=== PATIENT | female | born 1935 | race Caucasian/White ===

== ENCOUNTER 2018-01-26 11:16 | Outpatient (CLI) | payer MEDICARE | END 2018-01-26 11:17 | disposition home or self-care (01) | LOC: BICMAMMO 11:16 | PROVIDERS: ATTEND Internal Medicine | DX: Z12.31 Encounter for screening mammogram for malignant neoplasm of breast (principal); R92.1 Mammographic calcification found on diagnostic imaging of breast | CPT/HCPCS: 77063; 77067 ==

== ENCOUNTER 2019-03-14 11:10 | Outpatient (CLI) | payer MEDICARE ==
--- NOTE | 2019-03-14 12:41 | MMO ---
Bilateral MAMMO Bilat Screen [facility]. CLINICAL HISTORY: Patient is 84 years old and is seen for screening. The patient has no family history of breast cancer. The patient has no personal history of cancer. VIEWS: The views performed were: bilateral craniocaudal with tomosynthesis; bilateral mediolateral oblique; and bilateral mediolateral oblique with tomosynthesis. FILMS COMPARED: The present examination has been compared to prior imaging studies performed at [facility] on 10/02/2014, 11/05/2015, 01/06/2017 and 01/26/2018. MAMMOGRAM FINDINGS: There are scattered fibroglandular densities. Finding 1: There are stable benign appearing calcifications seen in both breasts. Finding 2: There are stable benign appearing densities seen in both breasts. There are no suspicious masses, suspicious calcifications, or new areas of architectural distortion. IMPRESSION: THERE IS NO MAMMOGRAPHIC EVIDENCE OF MALIGNANCY. A ROUTINE FOLLOW-UP MAMMOGRAM IN 1 YEAR IS RECOMMENDED. THE RESULTS OF THIS EXAM WERE SENT TO THE PATIENT. ACR BI-RADS Category 2 - Benign finding MAMMOGRAPHY NOTE: 1. A negative mammogram report should not delay a biopsy if a dominant of clinically suspicious mass is present. 2. Approximately 10% to 15% of breast cancers are not detected by mammography. 3. Adenosis and dense breasts may obscure an underlying neoplasm.
== END 2019-03-14 11:11 | disposition home or self-care (01) ==
LOC: BICMAMMO 11:10
PROVIDERS: ATTEND Internal Medicine
DX: Z12.31 Encounter for screening mammogram for malignant neoplasm of breast (principal)
CPT/HCPCS: 77063; 77067

== ENCOUNTER 2020-03-31 18:13 | Inpatient (IN) | payer MEDICARE ==
[2020-03-31] MEDS ORDERED: Senokot S 8.6-50 MG TAB PO PRN (19:58)
[2020-03-31] MEDS ORDERED: Ondansetron ODT 4 MG TAB PO PRN (19:58)
[2020-03-31] MEDS ORDERED: Ondansetron PF 4 MG/2 ML Vial IVP PRN (19:58)
[2020-03-31] MEDS ORDERED: Dextrose 5% in Water 1,000 ML IV PRN (20:35)
[2020-03-31] MEDS ORDERED: Dextrose 50% Abboject 50 ML SYRINGE SLOW IVP PRN (20:35)
[2020-03-31 21:10] LABS: Anion Gap 11 mmol/L (10-20); BUN (Urea Nitrogen) 6 mg/dL (9.8-20.1); Calc. Creatinine Clearance 0 mL/min (70-130); Calcium 7.7 mg/dL (7.8-10.44); Carbon Dioxide 27 mmol/L (23-31); Chloride 81 mmol/L (98-107); Estimated GFR-MDRD 89; Glucose 173 mg/dL (83-110); Potassium 4.3 mmol/L (3.5-5.1)
--- NOTE | 2020-03-31 21:20 | PDOC.FPRHP ---
- History of Present Illness Chief Complaint: SOB, Edema History of Present Illness: Pt is an 85 yo female with PMH of Afib on anticoagulation, DMII, HTN, and IBS who was transferred from [place] for complaints of SOB and edema. Reports 3 -4 days of bilateral lower extremity edema and SOB that has failed to improved. Reports that this has been accompanied by cough, lightheadedness and similar episodes of "fluid on lungs" in the past. Denies orthopnea, WILLIAM/N/V, fever, chills, seizure, syncope. ED Course: Received EKG and labs at outside hospital Lasix 40 IV given at outside hospital - Allergies/Adverse Reactions Allergies Allergy/AdvReac Type Severity Reaction Status Date / Time codeine Allergy Unverified 03/31/20 20:39 - History PMHx: Afib, DM, HTN, IBS PSHx: Hysterectomy, hernia repair FHx: noncontributory Social: lives alone in [place]. Denies tobacco and alcohol use - Review of Systems General: denies: fever/chills Eyes: denies: vision changes Respiratory: reports: cough, shortness of breath Cardiovascular: reports: edema. denies: chest pain, orthopnea Gastrointestinal: reports: diarrhea. denies: nausea, vomiting Genitourinary: denies: dysuria Skin: denies: rashes Musculoskeletal: reports: tenderness Neurological: denies: syncope, seizure Psychological: denies: anxiety, depression - Vital signs BP: [184/84] HR: [66] RR: [22] Tmax: [97.9] Pox: [96]% on [RA] Wt: [86kg] - Physical Exam Constitutional: awake, alert and oriented HEENT: normocephalic and atraumatic, PERRLA, EOMI, grossly normal hearing, MMM Neck: supple -Heart: irregular rate and rhythm, afib; nonpitting edema of the bilateral lower extremities Lungs: CTAB -Lungs: poor inspiratory effort Abdomen: soft, non-tender, bowel sounds present Neurological: no focal deficit Skin: no rash/lesions FMR H&P: Results - Labs Result Diagrams: 04/01/20 06:13 04/01/20 06:13 - EKG Interpretation EKG: Afib with rate ~49; rate in 60s upon exam FMR H&P: A/P - Plan 85 yo female with PMH of Afib, DMII, HTN, and IBS who is admitted to tele for pulmonary edema and hyponatremia. Pulmonary Edema -likely secondary to CHF with BNP of 1006 -contact Dr. Casarez tomorrow -Xray at outside hospital showed cardiomegaly and signs of pulmonary edema -40 mg of IV lasix given at outside hospital, 20 mg of IV lasix -continue to monitor fluid status Hyponatremia -likely Hypervolemic hyponatremia -given lasix as mentioned above -will hold home medication of Dyazide Afib -admitting to tele -continue home Cartia and warfarin -INR 2.0 DMII -continue home Janumet -hypoglycemic protocols in place HTN -continue home lisinopril IBS -continue home dicyclomine Diet: HH/CC IVF: none PPx: SCDs, pt is also on warfarin for Afib Code: DNR/DNI PCP: [facility] Attending: Pieter Dispo: will admit to tele; expected length of stay >48 hrs. FMR H&P: Upper Level - Plan 85 yo F with PMH afib on anticoagulation, HLD, DM, HTN presents for increasing SOB and LE edema. She felt like it was time to get evaluated and for some oxygen. Denies orthopnea, fever, chills, cough. Hyponatremia found in ED. Patient was recently started on new diuretic, thiazide by Dr. Damon. Per chart has been on Lasix in past but patient did not like it as it made her pee frequently. PE Gen: NAD, alert and oriented Heart: irregularly irregular Lungs: no wheezing or rhonchi, decreased breath sounds at the bases Ext: nonpitting edema of BLE with chronic venous stasis changes Hyponatremia -Initial Na+ 115 @ 14:00 on 03/30. (Na of 122 on 03/28). -In setting of hypervolemia. Likely thiazide induce hypotonic hyponatremia. Patient asymptomatic. Not acutely elevated, goal to increase by 8 in next 24 hrs. BMP q4h. -s/p IV Lasix in ED. Will recheck BMP as hours have passed and reassess for improvement -discontinue thiazide, strict I/Os, fluid restrict 1800, may need more diuresis - serum osm, urine studies ordered as well Possible CHF exacerbation -CXR with cardiomegaly and increased interstitial markings, LE edema -Was on 2L NC in ED but now satting well on RA -Given nitro paste and Lasix IV 40 in ED -BNP of 1006 (was 636 on 03/28). Pt denies hx of CHF, [facility] -Will request records from Dr. Damon office in am Afib -Continue home warfarin, rate controlled on cartia See social media intern note for other chronic medical problems. Dispo: admit to telemetry inpatient, monitor sodium correction closely Addendum - Attending - Attending Attestation Date/Time: 04/01/20 0709 I personally evaluated the patient and discussed the management with Dr. Underwood on 03/31/20 I agree with the History, Examination, Assessment and Plan documented above with any addition or exceptions noted below - 85 yo F with PMH afib on warfarin , HLD, DM, HTN presents for increasing SOB and LE edema. Has had similar prior episodes of "fluid on her lungs". Denies orthopnea, fever, chills, cough. Hyponatremia found in ED. Patient was recently started on new diuretic, thiazide by Dr. Damon. Per chart has been on Lasix in past but patient did not like it as it made her pee frequently. PMH/PSH/Meds/SH reviewed and agree with resident's documentation. Afebrile VSS Exam repeated by me and agree with resident's findings. Labs: Uy=718, K=4.3, Cl=81, CO2=27, BUN/Cr=6/0.64, Upst=134 , WBC=13.7, H/H=12.6/36, trop=0.023, AOL=8947, CXR- cardiomegaly A/P: 1) Volume overload- per patient no known diagnosis of CHF. Will contact supervisor blast furnace's office regarding any recent echo to confirm EF. Given 40 mg lasix in outlyin ER with improvement in patient's symptoms. Additional 20 mg given here. Monitor I/ Os. 2) Hypovolemic hyponatremia - asymptomatic; has been slowly decreasing over last several days. Will fluid restrict; check urine urea and osmo. 3) DM- continue home meds; monitro accuchecks. .
[2020-03-31 21:21] LABS: Sodium 115 mmol/L (136-145)
[2020-03-31] MEDS ORDERED: Furosemide 20 MG/2 ML VIAL SLOW IVP SCH (21:30)
[2020-03-31] MEDS ORDERED: Furosemide 40 MG/4 ML VIAL ONE (22:12)
[2020-03-31] MEDS ORDERED: metFORMIN 500 MG TAB PO SCH (23:00)
[2020-03-31] MEDS ORDERED: Alogliptin 6.25 MG TAB PO SCH (23:00)
[2020-03-31] MEDS ORDERED: Warfarin Sodium 2 MG TAB PO SCH (23:00)
[2020-04-01 01:12] LABS: Anion Gap 13 mmol/L (10-20); BUN (Urea Nitrogen) 6 mg/dL (9.8-20.1); Calc. Creatinine Clearance 0 mL/min (70-130); Calcium 7.6 mg/dL (7.8-10.44); Carbon Dioxide 28 mmol/L (23-31); Chloride 78 mmol/L (98-107); Estimated GFR-MDRD 89; Glucose 179 mg/dL (83-110); Potassium 3.9 mmol/L (3.5-5.1)
[2020-04-01 01:16] LABS: Sodium 115 mmol/L (136-145)
[2020-04-01] MEDS ORDERED: Acetaminophen 325 MG TAB ONE ×2 (02:56→11:28)
[2020-04-01] MEDS: Acetaminophen 325 MG TAB PO PRN ×2 (03:03→11:40)
[2020-04-01] MEDS ORDERED: Albuterol Sulfate 2.5 mg/3 ml Neb NEB PRN (03:11)
--- NOTE | 2020-04-01 05:58 | PDOC.FM ---
- Subjective Subjective: Ms. Castano is still in ED awaiting room placement. She is alert and oriented to person and time but not entirely to place. She knew she was at the hospital but did not know which one. She complains of feeling hot and appears to be breathing heavy although she denies any SOB at this time. - Objective Vital Signs & Weight: BP 133/71, P 65, R 17, T 97.8, 100% on 2L Result Diagrams: 04/01/20 06:13 04/01/20 14:07 Phys Exam - Physical Examination difficult to assess due to patient's inability to sit up or roll over Cardiovascular: no significant murmur irregular rhythm consistent with Afib Gastrointestinal: soft, non-tender Musculoskeletal: edema present Neurological: moves all 4 limbs Deviation from normal: A&O x2 Dx/Plan - Plan Plan: 85 yo female with PMH of Afib, DMII, HTN, and IBS who is admitted to tele for pulmonary edema and hyponatremia. Pulmonary Edema -likely secondary to CHF with BNP of 1006 -contact Dr. Damon for records -Xray at outside hospital showed cardiomegaly and signs of pulmonary edema -40 mg of IV lasix given at outside hospital, 20 mg of IV lasix -continue to monitor fluid status Hyponatremia -Na 115->115->115 -gave 80mg IV lasix -reasses at 0900 and q4h after that -Urine sodium and osmolality pending -Mg, Phos, TSH pending -likely Hypervolemic hyponatremia -will hold home medication of Dyazide Leukocytosis -WBC 13.7 this AM, unaware of value at outside hospital before admission -Procal pending Afib -admitting to tele -continue home Cartia and warfarin -INR 2.0 DMII -continue home Janumet -hypoglycemic protocols in place HTN -continue home lisinopril IBS -continue home dicyclomine Diet: HH/CC IVF: none PPx: SCDs, pt is also on warfarin for Afib Code: DNR/DNI PCP: [facility] Attending: Pieter Dispo: will admit to tele; expected length of stay >48 hrs. Addendum - Attending - Attending Attestation Date/Time: 04/01/20 8870 I personally evaluated the patient and discussed the management with Dr. Bedoya. I agree with the History, Examination, Assessment and Plan documented above with any addition or exceptions noted below. her hyponatremia remains unchanged this morning. She appears to be clinically overloaded but has not responded to diuretic therapy yet. She is mentating well. Will increase fluid restriction to 1200 mL/day and give additional dose of IV lasix 80 mg. if this does not change sodium at next check will repeat lasix with metolazone. She was started on a thiazide diuretic recently so it is possible that this is mediating her hypoNa as well. If no improvement after lasix and metolazone, will consider adding NS to regimen in case this is diuretic mediated and she is systemically Na depleted. Hypertonic Na if she becomes symptomatic. Replace electrolytes as needed.
[2020-04-01 06:21] LABS: #Eosinphils 0.1 thou/uL (0.0-0.7); #Monocytes 1.3 thou/uL (0.11-0.59); #Neutrophils 10.3 thou/uL (1.40-6.50); %Basophils 0.2 % (0.0-1.0); %Eosinophils 0.8 % (0.0-10.0); %Lymphocytes 14.5 % (21.0-51.0); %Monocytes 9.6 % (0.0-10.0); Hemoglobin 12.6 g/dL (12.0-16.0); Mean Corpuscular Hemoglobin 33.3 pg (27.0-31.0); Platelet Count 201 thou/uL (130-400); RBC Distribution Width 12.1 % (11.5-14.5); Red Blood Cell (RBC) Count 3.79 mill/uL (4.20-5.40); White Blood Cell (WBC) Count 13.7 thou/uL (4.8-10.8)
[2020-04-01 06:43] LABS: Anion Gap 11 mmol/L (10-20); BUN (Urea Nitrogen) 6 mg/dL (9.8-20.1); Calc. Creatinine Clearance 0 mL/min (70-130); Calcium 7.5 mg/dL (7.8-10.44); Carbon Dioxide 31 mmol/L (23-31); Chloride 77 mmol/L (98-107); Estimated GFR-MDRD Greater than 90; Glucose 133 mg/dL (83-110); Potassium 3.9 mmol/L (3.5-5.1)
[2020-04-01 06:46] LABS: Sodium 115 mmol/L (136-145)
[2020-04-01] MEDS ORDERED: Furosemide 100 MG/10 ML VIAL SLOW IVP SCH (07:45)
[2020-04-01] MEDS ORDERED: Furosemide 40 MG TAB ONE (09:14)
[2020-04-01] MEDS ORDERED: Furosemide 40 MG/4 ML VIAL ONE (09:26)
[2020-04-01 09:45] LABS: Anion Gap 11 mmol/L (10-20); BUN (Urea Nitrogen) 6 mg/dL (9.8-20.1); Calc. Creatinine Clearance 0 mL/min (70-130); Calcium 7.6 mg/dL (7.8-10.44); Carbon Dioxide 30 mmol/L (23-31); Chloride 77 mmol/L (98-107); Estimated GFR-MDRD Greater than 90; Glucose 144 mg/dL (83-110); Potassium 3.9 mmol/L (3.5-5.1)
[2020-04-01 09:53] LABS: Sodium 114 mmol/L (136-145)
[2020-04-01 10:07] LABS: Magnesium 1.4 mg/dL (1.6-2.6); Phosphorus 2.9 mg/dL (2.3-4.7)
[2020-04-01] MEDS: metFORMIN 500 MG TAB PO SCH ×2 (10:35→21:28)
[2020-04-01] MEDS: Alogliptin 6.25 MG TAB PO SCH ×2 (10:35→21:27)
[2020-04-01] MEDS: Timolol 0.5% Ophth Soln 5 ml Bottle EA EYE SCH ×2 (10:35→22:24)
[2020-04-01] MEDS ORDERED: Magnesium 2 GM/50 ML 2 GM in Premix Bag 1 BAG IVPB SCH (12:00)
[2020-04-01 14:51] LABS: Anion Gap 11 mmol/L (10-20); BUN (Urea Nitrogen) 6 mg/dL (9.8-20.1); Calc. Creatinine Clearance 101 mL/min (70-130); Calcium 7.4 mg/dL (7.8-10.44); Carbon Dioxide 31 mmol/L (23-31); Chloride 76 mmol/L (98-107); Estimated GFR-MDRD Greater than 90; Glucose 138 mg/dL (83-110); Potassium 3.7 mmol/L (3.5-5.1)
[2020-04-01 14:57] LABS: Sodium 114 mmol/L (136-145)
[2020-04-01] MEDS ORDERED: Metolazone 5 MG TAB PO SCH (15:15)
[2020-04-01] MEDS ORDERED: Warfarin Sodium 2 MG TAB PO SCH (17:00)
[2020-04-01] MEDS ORDERED: Dextrose 50% Abboject 50 ML SYRINGE SLOW IVP PRN (18:11)
[2020-04-01] MEDS ORDERED: Dextrose 5% in Water 1,000 ML IV PRN (18:11)
[2020-04-01] MEDS: Insulin Regular 300 UNITS/3 ML VIAL SC PRN (18:42)
[2020-04-01 18:56] LABS: Anion Gap 13 mmol/L (10-20); BUN (Urea Nitrogen) 8 mg/dL (9.8-20.1); Calc. Creatinine Clearance 85 mL/min (70-130); Calcium 7.6 mg/dL (7.8-10.44); Carbon Dioxide 30 mmol/L (23-31); Estimated GFR-MDRD 76; Glucose 202 mg/dL (83-110); Potassium 4.2 mmol/L (3.5-5.1)
[2020-04-01 19:00] LABS: Chloride 74 mmol/L (98-107); Sodium 113 mmol/L (136-145)
[2020-04-01] MEDS: Sodium Chloride 0.9% 1,000 ML IV SCH (19:36)
[2020-04-01 20:58] LABS: Phosphorus 3.4 mg/dL (2.3-4.7)
[2020-04-01] MEDS ORDERED: Lisinopril 20 MG TAB PO SCH (21:00)
[2020-04-01] MEDS ORDERED: Magnesium 2 GM/50 ML 1 GM in Premix Bag 1 BAG IVPB SCH (21:15)
[2020-04-01] MEDS: Latanoprost 0.005% Ophth Soln 2.5 ml Bottle EA EYE SCH (21:26)
[2020-04-01] MEDS: Atorvastatin Calcium 10 MG TAB PO SCH (21:28)
[2020-04-01 21:39] LABS: Anion Gap 14 mmol/L (10-20); BUN (Urea Nitrogen) 8 mg/dL (9.8-20.1); Calc. Creatinine Clearance 87 mL/min (70-130); Calcium 7.5 mg/dL (7.8-10.44); Carbon Dioxide 28 mmol/L (23-31); Chloride 76 mmol/L (98-107); Estimated GFR-MDRD 79; Glucose 169 mg/dL (83-110); Potassium 4.1 mmol/L (3.5-5.1)
[2020-04-01 21:44] LABS: Sodium 114 mmol/L (136-145)
[2020-04-01] MEDS: DOBUTamine 500 mg/250 ml 250 ML IVPB SCH (21:57)
[2020-04-02 04:22] LABS: #Eosinphils 0.1 thou/uL (0.0-0.7); #Lymphocytes 1.4 thou/uL (1.20-3.40); #Monocytes 0.9 thou/uL (0.11-0.59); #Neutrophils 9.8 thou/uL (1.40-6.50); %Eosinophils 0.6 % (0.0-10.0); %Lymphocytes 11.6 % (21.0-51.0); %Monocytes 7.2 % (0.0-10.0); %Neutrophils 80.6 % (42.0-75.0); Hemoglobin 11.6 g/dL (12.0-16.0); Mean Corpuscular HGB CONC 34.4 g/dL (32.0-36.0); Mean Corpuscular Hemoglobin 32.9 pg (27.0-31.0); Mean Corpuscular Volume 95.6 fL (78.0-98.0); Mean Platelet Volume 7.4 fL (7.4-10.4); Platelet Count 185 thou/uL (130-400); RBC Distribution Width 12.2 % (11.5-14.5); Red Blood Cell (RBC) Count 3.51 mill/uL (4.20-5.40); White Blood Cell (WBC) Count 12.2 thou/uL (4.8-10.8)
[2020-04-02 04:37] LABS: Prothrombin Time 22.2 sec (12.0-14.7)
[2020-04-02 04:48] LABS: Anion Gap 13 mmol/L (10-20); BUN (Urea Nitrogen) 10 mg/dL (9.8-20.1); Calc. Creatinine Clearance 78 mL/min (70-130); Calcium 6.8 mg/dL (7.8-10.44); Carbon Dioxide 26 mmol/L (23-31); Estimated GFR-MDRD 70; Glucose 345 mg/dL (83-110); Potassium 3.8 mmol/L (3.5-5.1)
[2020-04-02 04:52] LABS: Chloride 74 mmol/L (98-107); Sodium 109 mmol/L (136-145)
[2020-04-02] MEDS ORDERED: Sodium Chloride 3% 500 ML IVPB SCH (05:15)
[2020-04-02] MEDS ORDERED: Furosemide 40 MG/4 ML VIAL SLOW IVP SCH (05:30)
[2020-04-02] MEDS ORDERED: Sodium Chloride 3% 50 ML IVPB SCH (05:45)
[2020-04-02] MEDS: Sodium Chloride 0.9% 1,000 ML IV SCH ×3 (05:48→21:17)
--- NOTE | 2020-04-02 06:20 | PDOC.FM ---
- Subjective Subjective: Patient says she feels weak and tired today. She denies any headache or nausea and says her SOB has improved. She is not hungry this morning but was attempting to eat breakfast. - Objective Vital Signs & Weight: Vital Signs (12 hours) Temp Pulse Resp BP Pulse Ox 04/02/20 04:00 97.5 F L 55 L 16 116/59 L 98 04/02/20 00:00 98.1 F 33 L 18 104/55 L 98 04/01/20 22:24 38 L 04/01/20 20:00 98 04/01/20 19:33 85/52 L 04/01/20 19:22 98.4 F 38 L 20 112/56 L 100 Weight Weight 91.762 kg I&O: 03/31/20 04/01/20 04/02/20 06:59 06:59 06:59 Intake Total 500 Balance 500 Result Diagrams: 04/02/20 03:41 04/02/20 14:39 Additional Labs: Laboratory Tests 04/02/20 04/02/20 03:41 03:41 PT 22.2 H INR 2.0 Sodium 109 L* Phys Exam - Physical Examination Constitutional: NAD HEENT: PERRLA, moist MMs, sclera anicteric Neck: full ROM course breath sounds throughout Cardiovascular: RRR, no significant murmur, no rub Gastrointestinal: soft, non-tender, no distention, positive bowel sounds Musculoskeletal: pulses present 1+ LE edema bilaterally Neurological: non-focal, moves all 4 limbs Psychiatric: normal affect, A&O x 3 Dx/Plan - Plan Plan: 85 yo female with PMH of Afib, DMII, HTN, and IBS who is admitted to [facility] for pulmonary edema and hyponatremia. Pulmonary Edema -likely secondary to CHF with BNP of 1006 -Dr. Damon has no record of ECHO -ECHO ordered -Xray at outside hospital showed cardiomegaly and signs of pulmonary edema -40 mg of IV lasix given at outside hospital, 20 mg of IV lasix -continue to monitor fluid status Hyponatremia -Na 115->115->115->114->114->109 (113 corrected)-->115-->115 -I spoke with Dr. Puckett who recommended 1L fluid restriction. Says to not give anymore hypertonic saline, he will give an ADH antagonist. -likely Hypervolemic hyponatremia -Given persistent hyponatremia despite diuretic therapy, patient was given 50mL hypertonic saline @50mL/hr @ 0545 on 04/02 as well as additional 40mg IV lasix. -BMP q2hrs -Received NS @ 100mL/hr @ 1915 on 04/01 -140mg IV lasix total given since admission -TSH, Phos normal -Hold home medication of Dyazide Hypotension -BPs 85/52, 104/55 -HR 52,38,38,33,55 -Dobutamine drip @ 13.7mL/hr @ 2157 on 04/01 Hypocalcemia 69>76>74>77 -will replace Leukocytosis -WBC 13.7->10.7 -Procal 0.03 -unlikely infectious in nature Afib -admitting to tele -continue home Cartia and warfarin -INR 2.0 Hypomagnesium -1.4, repleted DMII -mod SSI -continue home Janumet -hypoglycemic protocols in place HTN -continue home lisinopril IBS -continue home dicyclomine Diet: HH/CC IVF: none PPx: SCDs, pt is also on warfarin for Afib Code: DNR/DNI PCP: [facility] Attending: Pieter Dispo: will admit to tele; expected length of stay >48 hrs. Addendum - Attending - Attending Attestation Date/Time: 04/02/20 2051 I personally evaluated the patient and discussed the management with Dr. Bedoya. I agree with the History, Examination, Assessment and Plan documented above with any addition or exceptions noted below. She required initiation of a dobutamine GTT last night due to bradycardia and remains severely hyponatremic. Cardiology and nephrology consulted today. Awaiting further recommendations.
[2020-04-02 06:29] LABS: Anion Gap 11 mmol/L (10-20); BUN (Urea Nitrogen) 11 mg/dL (9.8-20.1); Calc. Creatinine Clearance 74 mL/min (70-130); Calcium 7.2 mg/dL (7.8-10.44); Carbon Dioxide 31 mmol/L (23-31); Chloride 77 mmol/L (98-107); Estimated GFR-MDRD 66; Glucose 194 mg/dL (83-110)
[2020-04-02 06:35] LABS: Sodium 115 mmol/L (136-145)
[2020-04-02 08:17] LABS: Anion Gap 13 mmol/L (10-20); BUN (Urea Nitrogen) 12 mg/dL (9.8-20.1); Calc. Creatinine Clearance 79 mL/min (70-130); Calcium 7.1 mg/dL (7.8-10.44); Carbon Dioxide 26 mmol/L (23-31); Chloride 80 mmol/L (98-107); Estimated GFR-MDRD 71; Glucose 129 mg/dL (83-110); Potassium 4.3 mmol/L (3.5-5.1)
[2020-04-02 08:22] LABS: Sodium 115 mmol/L (136-145)
[2020-04-02] MEDS ORDERED: Tolvaptan 15 MG TAB PO SCH (09:30)
--- NOTE | 2020-04-02 09:54 | CON ---
DATE OF CONSULTATION: SERVICE: Renal Medicine. HISTORY OF PRESENT ILLNESS: Ms. Castano is an 85-year-old white female, who was admitted initially for shortness of breath secondary to CHF. She was noted to be hyponatremic. Hyponatremia remained persistent in spite of optimization of her hemodynamics. She has been given free water restriction as well as diuretics. Due to the improved serum sodium, an empiric normal saline was given without improvement. In addition, she was said to have received limited quantity of hypertonic saline. We are now being consulted for this acute ? hyponatremia. Please note that I did see that the patient was taking hydrochlorothiazide as part of outpatient management. She was on triamterene/hydrochlorothiazide. REVIEW OF SYSTEMS: Currently, no chest pain. Mild shortness of breath. No nausea. No vomiting. Positive for leg edema. No fever or chills. No headache. No diplopia. No syncopal episode. No hematochezia. No melena. No hematemesis. No productive cough. Positive for joint pains. Appetite and energy level are decreased. MEDICATIONS: 1. Albuterol neb treatment. 2. Alogliptin 12.5 mg p.o. b.i.d. 3. Atorvastatin 10 mg tablet at bedtime. 4. Dobutamine drip. 5. Lisinopril 40 mg at bedtime. 6. Metformin 1000 mg p.o. b.i.d. 7. Normal saline at 100 mL/h. 8. Timolol eye drop as directed. 9. Coumadin as directed. PAST MEDICAL HISTORY: 1. Chronic atrial fibrillation. 2. Type 2 diabetes mellitus. 3. Hypertension. 4. Hypothyroidism. PAST SURGICAL HISTORY: Status post right inguinal hernia repair, status post appendectomy, status post hysterectomy, status post right leg surgery due to fracture, ? trauma. SOCIAL HISTORY: The patient lives alone. She lives in [place], three children. She has a able bodied watchman. Education, high school. Does not smoke. No alcohol. No recreational drug use. FAMILY HISTORY: No family history of ESRD. ALLERGIES: CODEINE. TRAUMA: Status post right leg fracture. IMMUNIZATION: Up-to-date. HOSPITALIZATIONS: Please see past medical history. PHYSICAL EXAMINATION: VITAL SIGNS: Blood pressure is noted at 114/57, heart rate 61, respiratory rate 18, temperature 97.7, and O2 saturation 100%. GENERAL: The patient is awake, alert, comfortable, not in overt distress, obese. SKIN: Adequate turgor. HEENT: She has a pinkish conjunctivae. Anicteric sclerae. NECK: No neck mass. No carotid bruits. No JVD. CHEST: No deformities. LUNGS: Clear breath sounds. No wheezing. No crackles. HEART: Irregular. No murmur. No gallops. No rubs. ABDOMEN: Globular, soft, nontender. No masses. EXTREMITIES: Trace edema. LABORATORY DATA: Laboratories of April 02, 2020; white count 12.2, hemoglobin 11.6. Sodium 115, potassium 4.3, chloride 80, carbon dioxide 26, BUN 12, creatinine 0.78, glucose 129, calcium 7.1. Serum osmolality was 243. Urinalysis of March 31, 2020; specific gravity 1.020, rbc's 0-3, wbc 4-6. April 02, 2020; serum sodium 115, BUN 4.3, chloride 80, carbon dioxide 26, BUN 12, creatinine 0.78. ASSESSMENT AND PLAN: Hyponatremia, unclear if this chronic or acute. Continue free water restriction 1 L per day. We will start the patient on tolvaptan 15 mg tablet daily. We will hold off hypertonic saline due to the history of the patient having a congestive heart failure. A cardiac echo will be ordered to determine ejection fraction. The patient is mentating well. Currently, on every 2 hours recheck of serum sodium. Agree with current management. Continue supportive care. Possibility of SIADH remains Thank you for the consult. We will continue to follow. Job ID: [id number] MTDD
[2020-04-02] MEDS: Alogliptin 6.25 MG TAB PO SCH ×2 (10:17→21:20)
[2020-04-02] MEDS: metFORMIN 500 MG TAB PO SCH ×2 (10:20→21:22)
[2020-04-02] MEDS: Timolol 0.5% Ophth Soln 5 ml Bottle EA EYE SCH ×2 (10:21→21:19)
[2020-04-02 10:53] LABS: Anion Gap 14 mmol/L (10-20); BUN (Urea Nitrogen) 13 mg/dL (9.8-20.1); Calc. Creatinine Clearance 74 mL/min (70-130); Calcium 7.1 mg/dL (7.8-10.44); Carbon Dioxide 26 mmol/L (23-31); Chloride 79 mmol/L (98-107); Estimated GFR-MDRD 66; Glucose 149 mg/dL (83-110)
[2020-04-02 10:58] LABS: Sodium 115 mmol/L (136-145)
[2020-04-02 12:44] LABS: Anion Gap 15 mmol/L (10-20); BUN (Urea Nitrogen) 13 mg/dL (9.8-20.1); Calc. Creatinine Clearance 74 mL/min (70-130); Calcium 7.2 mg/dL (7.8-10.44); Carbon Dioxide 26 mmol/L (23-31); Chloride 79 mmol/L (98-107); Estimated GFR-MDRD 65; Glucose 148 mg/dL (83-110); Potassium 4.6 mmol/L (3.5-5.1); Sodium 115 mmol/L (136-145)
[2020-04-02 15:21] LABS: Anion Gap 14 mmol/L (10-20); BUN (Urea Nitrogen) 14 mg/dL (9.8-20.1); Calc. Creatinine Clearance 73 mL/min (70-130); Calcium 7.3 mg/dL (7.8-10.44); Carbon Dioxide 28 mmol/L (23-31); Chloride 78 mmol/L (98-107); Estimated GFR-MDRD 61; Glucose 145 mg/dL (83-110); Potassium 4.7 mmol/L (3.5-5.1); Sodium 115 mmol/L (136-145)
--- NOTE | 2020-04-02 16:04 | CON ---
DATE OF CONSULTATION: HISTORY OF PRESENT ILLNESS: The patient is an 85-year-old woman, who presents for evaluation of dyspnea and lower extremity swelling. The patient was seen in 2010 and underwent a cardiac evaluation, which was notable for atrial fibrillation. The patient has been on chronic anticoagulation therapy. The patient has been in her usual state of health, but started noting having increasing dyspnea. She denied having any palpitations. She states she has not been eating well. She presented to the emergency room with increased lower extremity swelling. The patient denied having any chest discomfort. PAST MEDICAL HISTORY: 1. Chronic atrial fibrillation. 2. Hypertension. 3. Diabetes mellitus. 4. Thyroid disorder. PAST SURGICAL HISTORY: Hysterectomy and hernia repair. SOCIAL HISTORY: Nonsmoker. FAMILY HISTORY: Strong family history of coronary artery disease. MEDICATIONS: 1. Coumadin 4 mg at bedtime. 2. Metformin one tablet p.o. b.i.d. 3. Lisinopril 40 daily. 4. Triamterene/hydrochlorothiazide 37.5/25 daily. 5. Pravachol 40 at bedtime. SOCIAL HISTORY: She is a nonsmoker. ALLERGIES: CODEINE. REVIEW OF SYSTEMS: Ten-point system otherwise unremarkable. No history of easy bruising or bleeding. PHYSICAL EXAMINATION: GENERAL: This is an obese woman, in no acute distress. VITAL SIGNS: Blood pressure is 127/58. NECK: Showed no jugular venous distention. LUNGS: Clear to auscultation. HEART: Irregular rate and rhythm. Normal S1 and S2 with a 2/6 systolic murmur. ABDOMEN: Nondistended. EXTREMITIES: Showed moderate bilateral edema. VASCULAR: Radial pulse 2+. LABORATORY DATA: White blood cell count 12.2, hemoglobin 11.6, hematocrit 38.6 , and platelets 185. Sodium is 115, potassium 4.0, chloride 79, bicarb 26, BUN 13, creatinine 0.83. INR was 2.0. EKG atrial fibrillation with a marked ST-T wave abnormality, suggestive of ischemia. IMPRESSION: 1. Atrial fibrillation with slow ventricular response. 2. Congestive heart failure, probably secondary to diastolic heart failure. 3. Severe hyponatremia. 4. Chronic permanent atrial fibrillation. 5. Abnormal ECG. 6. Diabetes mellitus. 7. Hypertension. This woman presents with severe hyponatremia. The patient at this time is being treated with tolvaptan. She also has atrial fibrillation with slow ventricular response and is on dobutamine. Her Cardizem has been discontinued. The patient has been taken off her SIVA inhibitor therapy and diuretics. She has not received hypertonic saline. From a cardiac standpoint, we will check the patient's echocardiogram. We will proceed with stress testing when the patient is more clinically stable to see if there is any evidence of significant ischemia. The patient's prognosis is guarded. Job ID: [id number] MTDD
[2020-04-02 16:58] LABS: Anion Gap 12 mmol/L (10-20); BUN (Urea Nitrogen) 14 mg/dL (9.8-20.1); Calc. Creatinine Clearance 75 mL/min (70-130); Calcium 7.2 mg/dL (7.8-10.44); Carbon Dioxide 26 mmol/L (23-31); Chloride 80 mmol/L (98-107); Estimated GFR-MDRD 62; Glucose 151 mg/dL (83-110); Sodium 112 mmol/L (136-145)
[2020-04-02 18:13] LABS: Anion Gap 12 mmol/L (10-20); BUN (Urea Nitrogen) 13 mg/dL (9.8-20.1); Calc. Creatinine Clearance 73 mL/min (70-130); Calcium 6.9 mg/dL (7.8-10.44); Carbon Dioxide 25 mmol/L (23-31); Chloride 78 mmol/L (98-107); Estimated GFR-MDRD 61; Glucose 290 mg/dL (83-110); Potassium 4.4 mmol/L (3.5-5.1)
[2020-04-02 18:29] LABS: Sodium 111 mmol/L (136-145)
[2020-04-02] MEDS: DOBUTamine 500 mg/250 ml 250 ML IVPB SCH (19:21)
[2020-04-02 20:29] LABS: Anion Gap 11 mmol/L (10-20); BUN (Urea Nitrogen) 14 mg/dL (9.8-20.1); Calc. Creatinine Clearance 77 mL/min (70-130); Calcium 7.1 mg/dL (7.8-10.44); Carbon Dioxide 29 mmol/L (23-31); Chloride 80 mmol/L (98-107); Estimated GFR-MDRD 65; Glucose 175 mg/dL (83-110); Potassium 4.9 mmol/L (3.5-5.1); Sodium 115 mmol/L (136-145)
[2020-04-02] MEDS: Atorvastatin Calcium 10 MG TAB PO SCH (21:20)
[2020-04-02] MEDS: Calcium Carbonate 600 MG TAB PO SCH (21:20)
[2020-04-02] MEDS: Latanoprost 0.005% Ophth Soln 2.5 ml Bottle EA EYE SCH (21:20)
[2020-04-02 23:05] LABS: Anion Gap 15 mmol/L (10-20); BUN (Urea Nitrogen) 14 mg/dL (9.8-20.1); Calc. Creatinine Clearance 81 mL/min (70-130); Calcium 7.2 mg/dL (7.8-10.44); Carbon Dioxide 27 mmol/L (23-31); Chloride 79 mmol/L (98-107); Estimated GFR-MDRD 69; Glucose 132 mg/dL (83-110); Potassium 4.5 mmol/L (3.5-5.1)
[2020-04-02 23:08] LABS: Sodium 116 mmol/L (136-145)
[2020-04-03] MEDS: Acetaminophen 325 MG TAB PO PRN ×2 (02:00→12:55)
[2020-04-03 04:26] LABS: #Eosinphils 0.1 thou/uL (0.0-0.7); #Lymphocytes 1.5 thou/uL (1.20-3.40); #Monocytes 1.3 thou/uL (0.11-0.59); #Neutrophils 10.5 thou/uL (1.40-6.50); %Lymphocytes 11.2 % (21.0-51.0); %Monocytes 9.7 % (0.0-10.0); %Neutrophils 78.1 % (42.0-75.0); Hemoglobin 12.6 g/dL (12.0-16.0); Mean Corpuscular HGB CONC 35.1 g/dL (32.0-36.0); Mean Corpuscular Hemoglobin 33.8 pg (27.0-31.0); Mean Corpuscular Volume 96.4 fL (78.0-98.0); Mean Platelet Volume 7.3 fL (7.4-10.4); Platelet Count 151 thou/uL (130-400); RBC Distribution Width 12.2 % (11.5-14.5); Red Blood Cell (RBC) Count 3.71 mill/uL (4.20-5.40); White Blood Cell (WBC) Count 13.4 thou/uL (4.8-10.8)
[2020-04-03 05:02] LABS: Anion Gap 13 mmol/L (10-20); BUN (Urea Nitrogen) 13 mg/dL (9.8-20.1); Calc. Creatinine Clearance 85 mL/min (70-130); Calcium 7.1 mg/dL (7.8-10.44); Carbon Dioxide 25 mmol/L (23-31); Chloride 82 mmol/L (98-107); Estimated GFR-MDRD 73; Glucose 102 mg/dL (83-110); Potassium 4.4 mmol/L (3.5-5.1)
[2020-04-03 05:06] LABS: Sodium 116 mmol/L (136-145)
--- NOTE | 2020-04-03 05:54 | PDOC.FM ---
- Subjective Subjective: Patient states she is not feeling well today. She denies any headache, N/V, or pain and endorses general fatigue and weakness. She says she has not been hungry but has been making herself eat. - Objective Vital Signs & Weight: Vital Signs (12 hours) Temp Pulse Resp BP Pulse Ox 04/03/20 04:00 98.7 F 64 20 154/65 H 98 04/03/20 00:00 53 L 16 116/57 L 98 04/02/20 21:19 65 04/02/20 20:00 98 04/02/20 19:20 98.5 F 65 16 138/64 98 Weight Admit Weight 91.762 kg Weight 95.345 kg I&O: 04/01/20 04/02/20 04/03/20 06:59 06:59 06:59 Intake Total 500 1440 Balance 500 1440 Result Diagrams: 04/03/20 04:17 04/03/20 04:17 Additional Labs: Ca 7.1 Vit D 25.2 EKG Reviewed by me: Yes (tele: Afib, long QT when in 40s, normal QT when in 70s) Radiology Reviewed by me: Yes Radiology: ECHO: EF 55-60%, dilated LA, mod enlarged RA, mod enlarged RV cavity, mild MR, mod TR, increased right ventricular systolic pressure Dx/Plan - Plan Plan: 85 yo female with PMH of Afib, DMII, HTN, and IBS who is admitted to [facility] for pulmonary edema and hyponatremia. Pulmonary Edema -likely secondary to CHF with BNP of 1006 -ECHO on 04/02: EF 55-60%, dilated LA, mod enlarged RA size, mod enlarged RV cavity, mild MR, mod TR, increased right ventricular systolic pressure -Xray at outside hospital showed cardiomegaly and signs of pulmonary edema -40 mg of IV lasix given at outside hospital, 20 mg of IV lasix -continue to monitor fluid status -Card recs: will check ECHO and provide further recommendations Hyponatremia -Na 115->115->115->114->114->109 (113 corrected)-->115-->115-->111(114 corrected )-->115-->116-->116 -Given 50mL hypertonic saline @50mL/hr @ 0545 on 04/02 as well as additional 40mg IV lasix. -daily BMPs -Received NS @ 100mL/hr @ 1915 on 04/01 -140mg IV lasix total given since admission -TSH, Phos normal -Hold home medication of Dyazide -Nephrology recs: 1L fluid restriction, tolvaptan 15mg daily, reapeat BMP in AM Hypotension -BPs 116-154/57-65 -HR 53-65 -Dobutamine drip @ 5mcg/kg/hr @ 2157 on 04/01 -Cards following Hypocalcemia 6.9>7.1>7.2>7.1 -replace with 1200mg TID Vit D deficiency -25.2 -replace with 1000units/day Leukocytosis -WBC 13.7->10.7->13.4 -Procal 0.03 -afebrile -continue to monitor Afib -admitting to tele -continue home Cartia and warfarin -INR 2.0 Hypomagnesium -1.4, repleted DMII -mod SSI -continue home Janumet -hypoglycemic protocols in place HTN -continue home lisinopril IBS -continue home dicyclomine Diet: HH/CC IVF: none PPx: SCDs, pt is also on warfarin for Afib Code: DNR/DNI PCP: [facility] Attending: Pieter Dispo: will admit to tele; expected length of stay >48 hrs. Addendum - Attending - Attending Attestation Date/Time: 04/03/20 1350 I personally evaluated the patient and discussed the management with Dr. Bedoya. I agree with the History, Examination, Assessment and Plan documented above with any addition or exceptions noted below. management per cards/nephro. F/U recs. Na unchanged.
[2020-04-03] MEDS: Sodium Chloride 0.9% 1,000 ML IV SCH ×2 (07:50→20:54)
[2020-04-03] MEDS: Alogliptin 6.25 MG TAB PO SCH ×2 (08:59→20:53)
[2020-04-03] MEDS ORDERED: Calcium Carbonate 600 MG TAB PO SCH ×2 (09:00→10:15)
[2020-04-03] MEDS: Calcium Carbonate 600 MG TAB PO SCH ×3 (09:00→20:53)
[2020-04-03] MEDS ORDERED: Tolvaptan 15 MG TAB PO SCH ×2 (09:00)
[2020-04-03] MEDS: Timolol 0.5% Ophth Soln 5 ml Bottle EA EYE SCH ×2 (09:01→20:51)
[2020-04-03] MEDS: metFORMIN 500 MG TAB PO SCH ×2 (09:01→20:53)
[2020-04-03] MEDS: Enoxaparin Sodium 100 MG/ML SYRINGE SC SCH ×2 (09:01→20:53)
[2020-04-03 09:03] LABS: ALT (SGPT) 14 U/L (8-55); AST (SGOT) 29 U/L (5-34); Albumin 3.2 g/dL (3.4-4.8); Alkaline Phosphatase 62 U/L (40-110); Bilirubin, Direct 0.3 mg/dL (0.1-0.3); Bilirubin, Total 0.7 mg/dL (0.2-1.2); Protein, Total 5.9 g/dL (6.0-8.3)
--- NOTE | 2020-04-03 09:10 | PRG ---
DATE OF SERVICE: 04/03/2020 SERVICE: Renal Medicine. SUBJECTIVE: Ms. Castano is an 85-year-old white female, who was initially seen for hyponatremia. Initially, she was thought to have come with CHF. She was given diuretics. However, her hyponatremia did not improve and she was empirically given volume. There was some stabilization with this maneuver. Cardiac echo was done, it now shows a normal EF. Currently, she is on IV dobutamine, this may need to be discontinued. Cardiology is also evaluating the patient. She was started on tolvaptan yesterday at 15 mg tablet daily. No new complaints today. No chest pain. No mental status change. No shortness of breath. OBJECTIVE: VITAL SIGNS: Blood pressure is 127/58, heart rate 64, respiratory rate 21, temperature 97.6, and O2 sat is 97%. GENERAL: Awake, alert, and comfortable, not in overt distress. SKIN: Adequate turgor. HEENT: She has a pinkish conjunctivae. Anicteric sclerae. NECK: No neck mass. No carotid bruits. No JVD. CHEST: No deformities. LUNGS: Clear breath sounds. No wheezing. No crackles. HEART: Normal sinus rhythm. No murmur. No gallops. No rubs. ABDOMEN: Globular, soft, and nontender. No masses. EXTREMITIES: No edema. No deformities. Cardiac echo of April 02, 2020, showed an EF of 55% to 60%. There is a moderately dilated left atrium, left ventricular size is normal, [id number] tricuspid regurgitation. LABORATORY DATA: Laboratories of April 03, 2020; hemoglobin 12.6. Sodium 116, potassium 4.4, chloride 82, carbon dioxide 25, BUN 13, creatinine 0.76, glucose 102, and calcium 7.1. The patient's initial serum osmolality was noted to have been at 243. In addition, uric acid was checked and it was noted to be 4.6. TSH was 0.65. Cortisol was 27. ASSESSMENT AND PLAN: 1. Hyponatremia, consider the possibility of syndrome of inappropriate antidiuretic hormone secretion. Continue tolvaptan. We will restart her back on tolvaptan 15 mg tablet once a day. In addition, continue free water restriction 1 L per day. Serum sodium is still low at 116, which is minimally improved from the last 24 hours. If needed, we can always consider hypertonic saline. Please note the cardiac echo showed a normal ejection fraction. I feel that we can wean off the IV dobutamine with this patient. 2. Recheck basic met in a.m. Job ID: [id number]
[2020-04-03] MEDS: Insulin Regular 300 UNITS/3 ML VIAL SC PRN (12:55)
[2020-04-03 13:00] LABS: Prothrombin Time Greater than 150.0 sec (12.0-14.7)
[2020-04-03 13:31] LABS: INR-International Normal Ratio 2.1; Prothrombin Time 23.1 sec (12.0-14.7)
[2020-04-03] MEDS: Latanoprost 0.005% Ophth Soln 2.5 ml Bottle EA EYE SCH (20:52)
[2020-04-03] MEDS: Atorvastatin Calcium 10 MG TAB PO SCH (20:53)
--- NOTE | 2020-04-04 05:48 | PDOC.FM ---
Addendum entered and electronically signed by Hugo Bedoya MD 04/04/20 10:06: Nephrology recs: Na went from 116 to 130 in one day. Discontinue tolvaptan. D5 water @ 100mL/hr. BMP at time of fluid initiation and 4 hours after. Suspected SIADH - will obtain CT chest w/ contrast Original Note: - Subjective Subjective: Ms. Castano is not feeling well this morning. She expresses extreme fatigue and weakness. She was sleeping but arousable and opened eyes on command. She denies headache, nausea, or vomiting. - Objective Vital Signs & Weight: Vital Signs (12 hours) Temp Pulse Resp BP BP Pulse Ox 04/04/20 03:12 98.0 F 65 18 149/68 H 99 04/03/20 23:47 146/66 H 04/03/20 20:51 64 150/67 H 04/03/20 19:48 98.0 F 64 20 150/67 H 98 Weight Admit Weight 91.762 kg Weight 95.345 kg I&O: 04/02/20 04/03/20 04/04/20 06:59 06:59 06:59 Intake Total 500 1440 480 Output Total 900 Balance 500 1440 -420 Result Diagrams: 04/04/20 07:45 04/04/20 07:45 EKG Reviewed by me: Yes (tele: Afib 60-70s) Phys Exam - Physical Examination Constitutional: NAD HEENT: PERRLA, moist MMs, sclera anicteric Neck: full ROM course breath sounds throughout Cardiovascular: no significant murmur, no rub irregular rhythm Gastrointestinal: soft, non-tender, no distention, positive bowel sounds Musculoskeletal: pulses present, edema present edema increased from past 2 days Neurological: moves all 4 limbs Psychiatric: normal affect, A&O x 3 Dx/Plan - Plan Plan: 85 yo female with PMH of Afib, DMII, HTN, and IBS who is admitted to [facility] for pulmonary edema and hyponatremia. Pulmonary Edema -likely secondary to CHF with BNP of 1006 -ECHO on 04/02: EF 55-60%, dilated LA, mod enlarged RA size, mod enlarged RV cavity, mild MR, mod TR, increased right ventricular systolic pressure -Xray at outside hospital showed cardiomegaly and signs of pulmonary edema -40 mg of IV lasix given at outside hospital, 20 mg of IV lasix -continue to monitor fluid status -Card recs: reviewed in paper chart -Patient is hypercapnic this morning CO2 34. Patient may have reduced oxygenation while sleeping. Will continue to monitor. Hyponatremia -Na 110s --> 130 today -Given 50mL hypertonic saline @50mL/hr @ 0545 on 04/02 as well as additional 40mg IV lasix. -daily BMPs -Received NS @ 100mL/hr @ 1915 on 04/01 -140mg IV lasix total given since admission -TSH, Phos normal -Hold home medication of Dyazide -Nephrology recs: 1L fluid restriction, tolvaptan 15mg daily, repeat BMP daily Hypotension -resolved -BPs 144-150/66-68 -discontinued Dobutamine drip -Cards following Hypocalcemia 6.9>7.1>7.2>7.1 -replace with 1200mg TID Vit D deficiency -25.2 -replace with 1000units/day Leukocytosis -resolved -WBC 13.7->10.7->13.4->9.3 -Procal 0.03 -afebrile -continue to monitor Afib -admitting to tele -rate controlled in 60-70s -continue home Cartia and warfarin -INR 2.0 Hypomagnesium -1.4, repleted DMII -mod SSI -continue home Janumet -hypoglycemic protocols in place HTN -continue home lisinopril IBS -continue home dicyclomine Diet: HH/CC IVF: none PPx: SCDs, pt is also on warfarin for Afib Code: DNR/DNI PCP: [facility] Dispo: will admit to tele; expected length of stay >48 hrs. Addendum - Attending - Attending Attestation Date/Time: 04/04/20 [id number] I personally evaluated the patient and discussed the management with Dr. Bedoya. I agree with the History, Examination, Assessment and Plan documented above with any addition or exceptions noted below. CT chest to evaluate for lung mass given possible SIADH. Fluids per nephro. Cards plans NM stress over the weekend if she remains stable. F/U results of CT scan.
[2020-04-04 07:56] LABS: #Basophils 0.1 thou/uL (0.0-0.2); #Eosinphils 0.1 thou/uL (0.0-0.7); #Lymphocytes 1.1 thou/uL (1.20-3.40); #Monocytes 0.9 thou/uL (0.11-0.59); #Neutrophils 7.1 thou/uL (1.40-6.50); %Basophils 0.8 % (0.0-1.0); %Eosinophils 0.8 % (0.0-10.0); %Lymphocytes 11.8 % (21.0-51.0); %Monocytes 9.6 % (0.0-10.0); %Neutrophils 76.9 % (42.0-75.0); Hemoglobin 13.8 g/dL (12.0-16.0); Mean Corpuscular HGB CONC 33.5 g/dL (32.0-36.0); Mean Corpuscular Hemoglobin 33.2 pg (27.0-31.0); Mean Corpuscular Volume 99.1 fL (78.0-98.0); Mean Platelet Volume 6.8 fL (7.4-10.4); Platelet Count 186 thou/uL (130-400); RBC Distribution Width 12.2 % (11.5-14.5); Red Blood Cell (RBC) Count 4.15 mill/uL (4.20-5.40); White Blood Cell (WBC) Count 9.3 thou/uL (4.8-10.8)
[2020-04-04 08:07] LABS: Prothrombin Time 22.4 sec (12.0-14.7)
[2020-04-04 08:21] LABS: Anion Gap 12 mmol/L (10-20); BUN (Urea Nitrogen) 9 mg/dL (9.8-20.1); Calc. Creatinine Clearance 95 mL/min (70-130); Calcium 7.9 mg/dL (7.8-10.44); Carbon Dioxide 34 mmol/L (23-31); Chloride 88 mmol/L (98-107); Estimated GFR-MDRD 83; Glucose 104 mg/dL (83-110); Sodium 130 mmol/L (136-145)
[2020-04-04] MEDS ORDERED: Dextrose 5% in Water 1,000 ML IV SCH (08:45)
--- NOTE | 2020-04-04 09:03 | PRG ---
DATE OF SERVICE: 04/04/2020 SERVICE: Renal Medicine. SUBJECTIVE: Ms. Castano is an 85-year-old white female, who was seen for her acute hyponatremia. 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 The patient has been started on tolvaptan 2 days ago at 15 mg tablet once a day. However, the serum sodium remained essentially unimproved and for that reason, she was again given a tolvaptan dose yesterday. Repeat serum sodium this morning showed a value of 130. Yesterday this was 116. Our plan is to discontinue the tolvaptan and start the patient on D5 water at 100 mL an hour. The patient voices no new complaints. She is sleepy and said she did sleep well last night. OBJECTIVE: VITAL SIGNS: Blood pressure 145/77, heart rate 76, respiratory rate 18, temperature 97.5, and O2 saturation 100%. GENERAL: The patient is awake, sleepy, but not in distress. Can follow commands. SKIN: Adequate turgor. HEENT: Pinkish conjunctivae. Anicteric sclerae. NECK: No neck mass. No carotid bruits. No JVD. CHEST: No deformities. LUNGS: Clear breath sounds. HEART: Normal sinus rhythm. No murmurs. No gallops. No rubs. ABDOMEN: Globular, soft, and nontender. No masses. EXTREMITIES: No edema. No deformities. MEDICATIONS: Medications of April 04, 2020, were reviewed. LABORATORY DATA: Laboratories of April 04, 2020; white count 9.2, hemoglobin 13.8. Sodium 130, potassium 4, chloride 88, carbon dioxide 34, BUN 9, creatinine 0.68, glucose 104, and calcium 7.9. On April 03, 2020, LFT is normal. ASSESSMENT AND PLAN: 1. Acute hyponatremia - serum sodium has gone up from 116 to 130. Due to the significant increase in serum sodium, we will discontinue tolvaptan. I have started D5 water at 100 mL an hour to slow down further increase of this serum sodium. 2. The patient most likely has had syndrome of inappropriate antidiuretic hormone secretion. She is also on free water restriction. I will probably liberalize these in the next day or so. Initially, she was felt to be in congestive heart failure and was started on IV dobutamine. When we got the results of the cardiac echo, which showed a normal EF, an IV dobutamine has been discontinued. For the moment, agree with current management. Continue supportive care. We will recheck a basic metabolic panel in 4 hours from the start of the IV fluid and repeat it every 4 hours. Case will be discussed with nursing staff and the house staff. Job ID: [id number]
[2020-04-04] MEDS: Alogliptin 6.25 MG TAB PO SCH ×2 (09:55→22:44)
[2020-04-04] MEDS: Calcium Carbonate 600 MG TAB PO SCH ×3 (09:55→22:46)
[2020-04-04] MEDS: Cholecalciferol 1,000 UNITS (25 MCG) TAB PO SCH (09:55)
[2020-04-04] MEDS: metFORMIN 500 MG TAB PO SCH ×2 (09:56→22:45)
[2020-04-04] MEDS: Enoxaparin Sodium 100 MG/ML SYRINGE SC SCH (09:57)
[2020-04-04] MEDS: Timolol 0.5% Ophth Soln 5 ml Bottle EA EYE SCH ×2 (09:57→22:45)
[2020-04-04] MEDS: Acetaminophen 325 MG TAB PO PRN ×2 (10:01→22:50)
[2020-04-04] MEDS ORDERED: Cepastat Lozenges 1 LOZ PO PRN (11:51)
[2020-04-04] MEDS ORDERED: Iopamidol-370 76% 500 ML 1 ML ONE (12:27)
[2020-04-04 12:54] LABS: Anion Gap 12 mmol/L (10-20); BUN (Urea Nitrogen) 7 mg/dL (9.8-20.1); Calc. Creatinine Clearance 91 mL/min (70-130); Carbon Dioxide 34 mmol/L (23-31); Chloride 88 mmol/L (98-107); Estimated GFR-MDRD 79; Glucose 139 mg/dL (83-110); Sodium 130 mmol/L (136-145)
--- NOTE | 2020-04-04 13:16 | CT ---
CT CHEST WITH IV CONTRAST: Date: 04/04/2020 HISTORY: Suspected SIADH. Patient has low sodium. Shortness of breath. FINDINGS: There is enlargement of the left lobe of the thyroid gland with large heterogeneous mass measuring 6. 0 cm in AP and transverse dimensions. The superior aspect of the mass is not visualized on this study . The inferior aspect extends into the substernal region. No mediastinal, hilar, or axillary lymphadenopathy is seen. There are vascular calcifications without evidence of aneurysmal dilatation of the thoracic aorta. There is subsegmental atelectasis in the le ft upper lobe. Upper abdominal tomograms demonstrate calcified gallstones and fatty infiltration of the liver. There is a 2.5 cm mass in the left adrenal gland which is stable in size since CT lumbar spine of 11/29/19 14 with interval development of internal calcifications. There are degenerative changes in the spine. IMPRESSION: 1. Thyroid mass with substernal extension. US would be helpful. 2. Moderate size bilateral pleural effusions. 3. Fatty liver. 4. Cholelithiasis. 5. Stable 2.5 cm left adrenal mass. POS: GINNAA
[2020-04-04] MEDS: Dextrose 5% in Water 1,000 ML IV SCH ×2 (14:25→22:43)
[2020-04-04 14:32] LABS: BUN (Urea Nitrogen) 8 mg/dL (9.8-20.1); Calc. Creatinine Clearance 91 mL/min (70-130); Estimated GFR-MDRD 79; Glucose 185 mg/dL (83-110)
[2020-04-04 14:56] LABS: Chloride 87 mmol/L (98-107); Sodium 130 mmol/L (136-145)
[2020-04-04 14:59] LABS: Anion Gap 13 mmol/L (10-20); Carbon Dioxide 34 mmol/L (23-31)
[2020-04-04] MEDS: Benzocaine 20% Spray 60 ML CAN PO SCH (15:38)
[2020-04-04 17:32] LABS: Anion Gap 12 mmol/L (10-20); BUN (Urea Nitrogen) 7 mg/dL (9.8-20.1); Calc. Creatinine Clearance 88 mL/min (70-130); Calcium 8.2 mg/dL (7.8-10.44); Carbon Dioxide 34 mmol/L (23-31); Chloride 88 mmol/L (98-107); Estimated GFR-MDRD 76; Glucose 178 mg/dL (83-110); Potassium 4.1 mmol/L (3.5-5.1); Sodium 130 mmol/L (136-145)
[2020-04-04 21:15] LABS: Anion Gap 13 mmol/L (10-20); BUN (Urea Nitrogen) 7 mg/dL (9.8-20.1); Calc. Creatinine Clearance 91 mL/min (70-130); Carbon Dioxide 33 mmol/L (23-31); Chloride 88 mmol/L (98-107); Estimated GFR-MDRD 79; Glucose 168 mg/dL (83-110); Potassium 3.9 mmol/L (3.5-5.1); Sodium 130 mmol/L (136-145)
[2020-04-04] MEDS: Latanoprost 0.005% Ophth Soln 2.5 ml Bottle EA EYE SCH (22:45)
[2020-04-04] MEDS: Atorvastatin Calcium 10 MG TAB PO SCH (22:45)
[2020-04-05] MEDS: Dextrose 5% in Water 1,000 ML IV SCH (02:07)
[2020-04-05] MEDS: Acetaminophen 325 MG TAB PO PRN ×3 (03:02→20:38)
[2020-04-05 04:33] LABS: #Eosinphils 0.2 thou/uL (0.0-0.7); #Lymphocytes 1.4 thou/uL (1.20-3.40); #Monocytes 1.2 thou/uL (0.11-0.59); #Neutrophils 8.8 thou/uL (1.40-6.50); %Basophils 0.1 % (0.0-1.0); %Eosinophils 1.9 % (0.0-10.0); %Lymphocytes 11.9 % (21.0-51.0); %Monocytes 10.6 % (0.0-10.0); %Neutrophils 75.5 % (42.0-75.0); Hemoglobin 12.2 g/dL (12.0-16.0); Mean Corpuscular HGB CONC 31.9 g/dL (32.0-36.0); Mean Corpuscular Hemoglobin 31.8 pg (27.0-31.0); Mean Corpuscular Volume 99.7 fL (78.0-98.0); Mean Platelet Volume 6.8 fL (7.4-10.4); Platelet Count 175 thou/uL (130-400); RBC Distribution Width 12.2 % (11.5-14.5); Red Blood Cell (RBC) Count 3.83 mill/uL (4.20-5.40); White Blood Cell (WBC) Count 11.6 thou/uL (4.8-10.8)
[2020-04-05 04:42] LABS: INR-International Normal Ratio 1.9; Prothrombin Time 21.5 sec (12.0-14.7)
[2020-04-05 05:06] LABS: BUN (Urea Nitrogen) 6 mg/dL (9.8-20.1); Calc. Creatinine Clearance 92 mL/min (70-130); Calcium 8.1 mg/dL (7.8-10.44); Estimated GFR-MDRD 80; Glucose 164 mg/dL (83-110)
[2020-04-05 05:15] LABS: Anion Gap 12 mmol/L (10-20); Carbon Dioxide 35 mmol/L (23-31); Chloride 85 mmol/L (98-107); Potassium 3.5 mmol/L (3.5-5.1); Sodium 128 mmol/L (136-145)
[2020-04-05] MEDS: Insulin Regular 300 UNITS/3 ML VIAL SC PRN (05:44)
--- NOTE | 2020-04-05 07:07 | PDOC.FM ---
- Subjective Subjective: Ms. Castano does not feel well this morning. She complains of extreme weakness and fatigue as well as a slight headache and mild nausea that began this morning. She explains she does not have an appetite but she makes herself eat because she needs to when she takes her medicine. - Objective Vital Signs & Weight: Vital Signs (12 hours) Temp Pulse Resp BP Pulse Ox 04/05/20 05:33 97.5 F L 72 20 135/64 97 04/04/20 22:45 70 04/04/20 19:48 97.8 F 63 20 153/70 H 98 Weight Admit Weight 91.762 kg Weight 93.44 kg I&O: 04/04/20 04/05/20 04/06/20 06:59 06:59 06:59 Intake Total 1020 1740 Output Total 1800 800 Balance -780 940 Result Diagrams: 04/05/20 04:02 04/05/20 04:02 EKG Reviewed by me: Yes (Afib, normal Qt, HR 70s) Phys Exam - Physical Examination HEENT: PERRLA, moist MMs, sclera anicteric Neck: full ROM course breath sounds throughout Cardiovascular: no significant murmur, no rub irregular rhythm Gastrointestinal: soft, non-tender, no distention, positive bowel sounds Musculoskeletal: pulses present, edema present Neurological: moves all 4 limbs Psychiatric: normal affect, A&O x 3 Dx/Plan - Plan Plan: 85 yo female with PMH of Afib, DMII, HTN, and IBS who is admitted to [facility] for pulmonary edema and hyponatremia. Hyponatremia -Na 110s --> 130-->128 -Nephrology recs: Suspicious for SIADH at this time. Patient was given 2 doses of tolvaptan which increased Na from 116 to 130. Medication was discontinued and patient was started on D5. currently on 150mL/hr D5, 1L fluid restriction, BMPq2-4h. -CT chest: Revealed a thyroid mass. ENT consulted: believe goiter is most likely due to size, says 1 study shows link between papillary cancer and SIADH. Will perform US guided biopsy outpatient. -Given 50mL hypertonic saline @50mL/hr @ 0545 on 04/02 as well as additional 40mg IV lasix. -Received NS @ 100mL/hr @ 1915 on 04/01 -140mg IV lasix total given since admission -TSH, Phos normal -Hold home medication of Dyazide Pulmonary Edema -suspected secondary to CHF with BNP of 1006 -ECHO on 04/02: EF 55-60%, dilated LA, mod enlarged RA size, mod enlarged RV cavity, mild MR, mod TR, increased right ventricular systolic pressure -Xray at outside hospital showed cardiomegaly and signs of pulmonary edema -40 mg of IV lasix given at outside hospital, 20 mg of IV lasix -continue to monitor fluid status -Card recs: Will consider NM stress test this weekend if patient is stable. -Patient continues to be hypercapnic this morning CO2 34>33>35. Patient O2 97% on 2L. Will continue to monitor. -Recheck Mg today Hypotension -resolved -BPs 140-150/60-70 through the night. 135/65 this morning. -discontinued Dobutamine drip -Cards following Hypocalcemia -resolved -continue 1200mg TID calcium carbonate Vit D deficiency -25.2 -replace with 1000units/day Leukocytosis -WBC 13.7->10.7->13.4->9.3->11.6 -Procal 0.03 -afebrile -continue to monitor Afib -admitting to tele -rate controlled in 60-70s -continue home Cartia and warfarin -INR 2.0 Hypomagnesium -1.4, repleted DMII -mod SSI -continue home Janumet -hypoglycemic protocols in place HTN -continue home lisinopril IBS -continue home dicyclomine Diet: HH/CC IVF: none PPx: SCDs, pt is also on warfarin for Afib Code: DNR/DNI PCP: [facility] Dispo: will admit to tele; expected length of stay >48 hrs.
[2020-04-05] MEDS: Timolol 0.5% Ophth Soln 5 ml Bottle EA EYE SCH ×2 (08:29→20:41)
--- NOTE | 2020-04-05 10:06 | PRG ---
DATE OF SERVICE: 04/05/2020 SUBJECTIVE: Ms. Castano is an 85-year-old white female, who was seen by Renal service for her acute hyponatremia. Initially, she was felt to have CHF and possible diagnosis of dilutional hyponatremia was made. However, cardiac echo showed a normal ejection fraction. Her IV dobutamine has been discontinued. We ended up treating the patient for presumed SIADH. She received two dose of tolvaptan. However, in the last day or so, her serum sodium dramatically improved from 116 to 130. Due to the dramatic increase of the serum sodium, we placed her on D5 water to slow down correction of her serum sodium. Serum sodium has gone down from 130 to 128. For that reason, we will be discontinuing the D5 water and place the patient on free water restriction. She is mentating well this morning. She feels tired. She complains of not being able to sleep at night. OBJECTIVE: VITAL SIGNS: Blood pressure 159/78, heart rate 67, respiratory rate 18, temperature 97.5, O2 saturation 96% room air. GENERAL: The patient is awake, alert, comfortable, not in distress. SKIN: Adequate turgor. HEENT: Pinkish conjunctivae. Anicteric sclerae. No neck mass. No carotid bruits. No JVD. CHEST: No deformities. LUNGS: Clear breath sounds. No wheezing. No crackles. HEART: Normal sinus rhythm. No murmur. No gallops. No rubs. ABDOMEN: Globular, soft, nontender. No masses. EXTREMITIES: No edema. No deformities. MEDICATIONS: Medications of April 05, 2020, was reviewed. LABORATORY DATA: Laboratories of April 05, 2020; white count 11.6, hemoglobin 2.2. Sodium 128, potassium 3.5, chloride 85, carbon dioxide 35, BUN 6, creatinine 0.7 , glucose 164, calcium 8.1, magnesium 2.0. ASSESSMENT AND PLAN: 1. Acute hyponatremia-presumptive SIADH. Serum sodium is stable at 128. Continue to hold the D5 water. In addition, we will hold off any tolvaptan with the patient. We will place her on free water restriction of at least 1 L per day. There is no indication to resume tolvaptan or any hypertonic saline. 2. Recheck basic metabolic panel in a.m. Job ID: [id number] [facility]
[2020-04-05] MEDS ORDERED: ADENOSINE 60 MG/20 ML VIAL ONE (11:53)
[2020-04-05] MEDS: Calcium Carbonate 600 MG TAB PO SCH ×3 (12:12→20:39)
[2020-04-05] MEDS: Alogliptin 6.25 MG TAB PO SCH ×2 (12:12→20:38)
[2020-04-05] MEDS: Cholecalciferol 1,000 UNITS (25 MCG) TAB PO SCH (12:13)
[2020-04-05] MEDS: Benzocaine 20% Spray 60 ML CAN PO SCH (12:13)
[2020-04-05] MEDS: metFORMIN 500 MG TAB PO SCH ×2 (12:13→20:39)
[2020-04-05 15:35] LABS: Sodium, Urine Less than 20 mmol/L (Not Available); Urea Nitrogen, Random Urine 161 mg/dl
--- NOTE | 2020-04-05 15:38 | NM ---
EXAM: Nuclear medicine cardiac perfusion examination with ejection fraction HISTORY: CHF and atrial fibrillation. TECHNIQUE: Stress images: 29.1 mCi of technetium 9M sestamibi; Adenosine COMPARISON: None FINDINGS: Tomographic images: No perfusion defects were seen on the nonattenuated corrected images with stress. Gated images: Normal wall motion and ejection fraction of 61%. EDV: 95 mL LHR: 0.5 IMPRESSION: No perfusion defects seen with stress
[2020-04-05] MEDS: Warfarin Sodium 2 MG TAB PO SCH (17:26)
--- NOTE | 2020-04-05 18:33 | PRG ---
DATE OF SERVICE: 04/05/2020 Please see note from Dr. Bedoya for which I agree. Patient was seen, evaluated, discussed, and examined with the residents by bedside, came in with hyponatremia and some pulmonary edema. She has been here now five days. Thought to be from SIADH, although we have not really found a definitive source of that. We may be overly correcting her and so, Dr. Puckett actually switched her temporarily to D5W, but now has held that and just water/fluid restricting and we are monitoring her sodium, which is getting better. In general, she feels weak, but not having major shortness of breath and is stable otherwise, and we will continue same blood pressure pills, warfarin, diabetes medicines, etc. Job ID: [id number]
[2020-04-05] MEDS: Atorvastatin Calcium 10 MG TAB PO SCH (20:38)
[2020-04-05] MEDS: Latanoprost 0.005% Ophth Soln 2.5 ml Bottle EA EYE SCH (20:39)
[2020-04-06] MEDS: Acetaminophen 325 MG TAB PO PRN ×2 (00:27→04:28)
[2020-04-06 04:47] LABS: #Eosinphils 0.2 thou/uL (0.0-0.7); #Lymphocytes 1.5 thou/uL (1.20-3.40); #Monocytes 0.8 thou/uL (0.11-0.59); %Basophils 0.2 % (0.0-1.0); %Eosinophils 1.9 % (0.0-10.0); %Lymphocytes 16.1 % (21.0-51.0); %Monocytes 8.2 % (0.0-10.0); %Neutrophils 73.7 % (42.0-75.0); Hemoglobin 12.4 g/dL (12.0-16.0); Mean Corpuscular HGB CONC 32.9 g/dL (32.0-36.0); Mean Corpuscular Hemoglobin 32.5 pg (27.0-31.0); Mean Corpuscular Volume 99.1 fL (78.0-98.0); Mean Platelet Volume 6.8 fL (7.4-10.4); Platelet Count 134 thou/uL (130-400); RBC Distribution Width 11.8 % (11.5-14.5); White Blood Cell (WBC) Count 9.6 thou/uL (4.8-10.8)
[2020-04-06 05:00] LABS: BUN (Urea Nitrogen) 6 mg/dL (9.8-20.1); Calc. Creatinine Clearance 96 mL/min (70-130); Calcium 8.7 mg/dL (7.8-10.44); Estimated GFR-MDRD 86; Glucose 123 mg/dL (83-110)
[2020-04-06 05:09] LABS: Anion Gap 13 mmol/L (10-20); Carbon Dioxide 38 mmol/L (23-31); Chloride 86 mmol/L (98-107); Potassium 3.7 mmol/L (3.5-5.1); Sodium 133 mmol/L (136-145)
[2020-04-06 05:11] LABS: INR-International Normal Ratio 1.9; Prothrombin Time 21.6 sec (12.0-14.7)
--- NOTE | 2020-04-06 05:38 | PDOC.FM ---
- Subjective Subjective: Ms. Castano says she feels much better today. She has mild abdominal pain but explains she needs to have a bowel movement. - Objective Vital Signs & Weight: Vital Signs (12 hours) Temp Pulse Resp BP Pulse Ox 04/06/20 04:20 169/77 H 04/06/20 04:00 97.5 F L 74 20 188/79 H 98 04/06/20 00:00 98.6 F 74 22 H 163/81 H 96 04/05/20 20:41 69 04/05/20 19:30 97.5 F L 75 22 H 143/77 H 97 Weight Admit Weight 91.762 kg Weight 94.347 kg I&O: 04/04/20 04/05/20 04/06/20 06:59 06:59 06:59 Intake Total 1020 3341 980 Output Total 1800 1550 1900 Balance -780 1791 -920 Result Diagrams: 04/06/20 04:29 04/06/20 04:29 Additional Labs: NM stress test: no perfusion defects seen EKG Reviewed by me: Yes (tele: Afib, 70s) Phys Exam - Physical Examination Constitutional: NAD HEENT: PERRLA, moist MMs, sclera anicteric Neck: full ROM Respiratory: no wheezing, no rales, no rhonchi Cardiovascular: no significant murmur, no rub irregular rhythm Gastrointestinal: soft, non-tender, no distention, positive bowel sounds Musculoskeletal: pulses present, edema present Neurological: moves all 4 limbs Psychiatric: normal affect, A&O x 3 Dx/Plan - Plan Plan: 85 yo female with PMH of Afib, DMII, HTN, and IBS who is admitted to [facility] for pulmonary edema and hyponatremia. Hyponatremia -Na 110s --> 130-->128-->133 -Nephrology recs: Suspicious for SIADH at this time. Yesterday patient's D5W was discontinued. 1L fluid restriction and daily BMPs continue. -CT chest: Revealed a thyroid mass. ENT consulted: believe goiter is most likely due to size, says 1 study shows link between papillary cancer and SIADH. Will perform US guided biopsy outpatient. -TSH, Phos normal -Hold home medication of Dyazide Pulmonary Edema -suspected secondary to CHF with BNP of 1006 -ECHO on 04/02: EF 55-60%, dilated LA, mod enlarged RA size, mod enlarged RV cavity, mild MR, mod TR, increased right ventricular systolic pressure -Xray at outside hospital showed cardiomegaly and signs of pulmonary edema -NM stress test: no perfusion defects seen -Mg normal -Patient continues to be hypercapnic this morning CO2 34>33>35>38. Patient O2 97 % on 2L. Will continue to monitor. -continue to monitor fluid status -Card recs HTN -143-188/75-81 -Restarted patient's home lisinopril Hypocalcemia -responding well to supplementation -decrease calcium carbonate 1200mg from TID to BID Vit D deficiency -25.2 -replace with 1000units/day Afib -admitting to tele -rate controlled in 60-70s -continue home Cartia and warfarin -INR 2.0 DMII -mod SSI -continue home Janumet -hypoglycemic protocols in place IBS -continue home dicyclomine Diet: HH/CC IVF: none PPx: SCDs, pt is also on warfarin for Afib Code: DNR/DNI PCP: [facility] Dispo: will admit to tele; expected length of stay >48 hrs.
[2020-04-06] MEDS: Alogliptin 6.25 MG TAB PO SCH ×2 (08:46→22:23)
[2020-04-06] MEDS: Timolol 0.5% Ophth Soln 5 ml Bottle EA EYE SCH ×3 (08:46→22:26)
[2020-04-06] MEDS: Calcium Carbonate 600 MG TAB PO SCH ×2 (08:46→22:23)
[2020-04-06] MEDS: Lisinopril 20 MG TAB PO SCH (08:47)
[2020-04-06] MEDS: metFORMIN 500 MG TAB PO SCH ×2 (08:47→22:23)
[2020-04-06] MEDS: Cholecalciferol 1,000 UNITS (25 MCG) TAB PO SCH (08:48)
--- NOTE | 2020-04-06 10:22 | PRG ---
DATE OF SERVICE: 04/06/2020 Please see note from Dr. Hugo Bedoya, for which I agree. The patient was seen, evaluated, discussed, and examined with the residents at bedside. No major change on her hyponatremia, has improved. Her sodium is now 133 with volume restrictions. No more pulmonary edema. QT prolongation is fine. We are restarting her lisinopril and she is on 2 L nasal cannula. She had a normal stress test as well. At this point in time, mostly dealing with placement issues on her. She would benefit from nursing home or rehab type setting. Job ID: [id number]
--- NOTE | 2020-04-06 11:19 | PRG ---
DATE OF SERVICE: 04/06/2020 SUBJECTIVE: Ms. Castano is an 85-year-old white female, who was seen by the Renal Service for her acute hyponatremia. The working diagnosis is this patient may have had an SIADH. Initially, we gave her tolvaptan for two days, but these increased her serum sodium from 116 to 130. For that reason, tolvaptan has been placed on hold. In addition, she was given D5 water to help stabilize the serum sodium, to prevent from further increasing. We placed on free water restriction. Her serum sodium is now stabilizing at 133 today. No new complaints. No chest pain or shortness of breath. No changes in mentation. OBJECTIVE: VITAL SIGNS: Blood pressure 132/59, heart rate 75, respiratory rate 18, temperature 97.5, O2 saturation 98%. GENERAL: The patient is awake, alert, comfortable, not in overt distress. SKIN: Adequate turgor. HEENT: Pinkish conjunctivae. Anicteric sclerae. NECK: No neck mass. No carotid bruits. No JVD. CHEST: No deformities. LUNGS: Clear breath sounds. No wheezing. No crackles. HEART: Normal sinus rhythm. No murmur. No gallops. No rubs. ABDOMEN: Globular, soft, nontender. No masses. EXTREMITIES: No edema. No deformities. MEDICATIONS: Medications of April 06, 2020, reviewed. LABORATORY DATA: Laboratories of April 06, 2020; white count 9.6, hemoglobin 12.4, hematocrit 37.6, and platelet count 134,000. Sodium 133, potassium 3.7, chloride 86, carbon dioxide 38, BUN 6, creatinine 0.66, glucose 123 and calcium 8.7. ASSESSMENT AND PLAN: 1. Hyponatremia. This could be most likely from an underlying transient SIADH. There is already a spontaneous correction of her serum sodium. Serum sodium is now noted at 133. 2. The patient is currently on a free water restriction at 1 L per day. She seems to be tolerating these. 3. Metabolic alkalosis. I did note that the patient's bicarbonate has gone up to 38. The metabolic alkalosis may be sometimes be seen in contraction alkalosis/volume depletion. Clinically, the patient does not seem to be volume depleted. My bias is to start her on some normal saline at 75 mL/hour. We will hold off any diuretics for the moment. 4. Overall, I agree with current management. We will recheck basic metabolic panel in a.m. Job ID: [id number]
[2020-04-06] MEDS: Sodium Chloride 0.9% 1,000 ML IV SCH (11:36)
[2020-04-06] MEDS: Warfarin Sodium 2 MG TAB PO SCH (16:56)
[2020-04-06] MEDS: Atorvastatin Calcium 10 MG TAB PO SCH (22:10)
[2020-04-06] MEDS: Latanoprost 0.005% Ophth Soln 2.5 ml Bottle EA EYE SCH (22:10)
[2020-04-07] MEDS: Sodium Chloride 0.9% 1,000 ML IV SCH ×2 (00:47→15:00)
[2020-04-07 04:41] LABS: INR-International Normal Ratio 2.3; Prothrombin Time 25.2 sec (12.0-14.7)
[2020-04-07 04:42] LABS: #Eosinphils 0.1 thou/uL (0.0-0.7); #Lymphocytes 1.5 thou/uL (1.20-3.40); #Monocytes 0.8 thou/uL (0.11-0.59); #Neutrophils 8.5 thou/uL (1.40-6.50); %Basophils 0.1 % (0.0-1.0); %Eosinophils 1.3 % (0.0-10.0); %Lymphocytes 13.5 % (21.0-51.0); %Neutrophils 78.1 % (42.0-75.0); Hemoglobin 12.5 g/dL (12.0-16.0); Mean Corpuscular HGB CONC 31.7 g/dL (32.0-36.0); Mean Corpuscular Hemoglobin 31.6 pg (27.0-31.0); Mean Corpuscular Volume 99.5 fL (78.0-98.0); Mean Platelet Volume 6.6 fL (7.4-10.4); Platelet Count 147 thou/uL (130-400); RBC Distribution Width 11.7 % (11.5-14.5); Red Blood Cell (RBC) Count 3.97 mill/uL (4.20-5.40); White Blood Cell (WBC) Count 10.9 thou/uL (4.8-10.8)
[2020-04-07 05:15] LABS: BUN (Urea Nitrogen) 8 mg/dL (9.8-20.1); Calc. Creatinine Clearance 99 mL/min (70-130); Calcium 8.5 mg/dL (7.8-10.44); Estimated GFR-MDRD 89; Glucose 111 mg/dL (83-110)
[2020-04-07 05:39] LABS: Chloride 89 mmol/L (98-107); Potassium 3.7 mmol/L (3.5-5.1); Sodium 136 mmol/L (136-145)
[2020-04-07 05:42] LABS: Anion Gap 18 mmol/L (10-20); Carbon Dioxide 33 mmol/L (23-31)
--- NOTE | 2020-04-07 05:50 | PDOC.FM ---
- Subjective Subjective: Pt resting comfortably in bed today. States that she is feeling better. She has no complaints at this time. - Objective Vital Signs & Weight: Vital Signs (12 hours) Temp Pulse Resp BP BP Pulse Ox 04/07/20 04:35 97.6 F 80 20 180/78 H 98 04/06/20 22:26 77 177/86 H 04/06/20 22:24 77 177/86 H 04/06/20 20:05 97.8 F 77 22 H 177/86 H 97 Weight Admit Weight 91.762 kg Weight 94.347 kg I&O: 04/05/20 04/06/20 04/07/20 06:59 06:59 06:59 Intake Total 3341 980 930 Output Total 1550 1900 1350 Balance 1791 -920 -420 Result Diagrams: 04/07/20 04:19 04/07/20 04:19 Phys Exam - Physical Examination Constitutional: NAD HEENT: PERRLA Respiratory: no wheezing, no rales, no rhonchi, clear to auscultation bilateral Cardiovascular: RRR, no significant murmur Dx/Plan - Plan Plan: 85 yo female with PMH of Afib, DMII, HTN, and IBS who is admitted to [facility] for pulmonary edema and hyponatremia. Hyponatremia -Na 110s --> 130-->128-->133-->136 -Nephrology recs: Suspicious for SIADH (transient) at this time. Tolvaptan discontinued. Continue free water restriction. Metabolic alkalosis (contraction ) improved, Bicarb 33. Ok to start on 75ml/hr NS. BMP recheck -CT chest: Revealed a thyroid mass. ENT consulted: believe goiter is most likely due to size, says 1 study shows link between papillary cancer and SIADH. Will perform US guided biopsy outpatient. -TSH, Phos normal -Hold home medication of Dyazide Pulmonary Edema -suspected secondary to CHF with BNP of 1006 -ECHO on 04/02: EF 55-60%, dilated LA, mod enlarged RA size, mod enlarged RV cavity, mild MR, mod TR, increased right ventricular systolic pressure -Xray at outside hospital showed cardiomegaly and signs of pulmonary edema -NM stress test: no perfusion defects seen -continue to monitor fluid status -on NC, will wean off today HTN -174/68 -Restarted patient's home lisinopril -started ditiazem @ 120mg Hypocalcemia -responding well to supplementation. -Ca = 8.5 -calcium carbonate 1200mg BID Vit D deficiency -25.2 -replace with 1000units/day Afib -rate controlled in 60-70s -continue home Cartia and warfarin -INR 2.0 DMII -mod SSI -continue home Janumet IBS -continue home dicyclomine Diet: HH/CC IVF: none PPx: SCDs, pt is also on warfarin for Afib Code: DNR/DNI PCP: [facility] Dispo: will wean off O2 today. control BP. f/u with CM for INPT rehab. Addendum - Attending - Attending Attestation Date/Time: 04/07/20 8891 I personally evaluated the patient and discussed the management with Dr. Deng. I agree with the History, Examination, Assessment and Plan documented above with any addition or exceptions noted below. Patient continues to complain of her chronic difficulties breathing. Her O2 sats are normal currently and she is only on 1/2 L by NC. Working on BP control. Serum sodium level stable, d/c fluids and see if she remains stable.
--- NOTE | 2020-04-07 08:32 | PRG ---
DATE OF SERVICE: 04/07/2020 SUBJECTIVE: Ms. Castano is an 85-year-old white female, who was seen by the Renal Service for her acute hyponatremia. Serum sodium is actually much improved. It is now normal. It is possible she may have had a transient SIADH. She is simply on a free water restriction at the present time. At one time, she was on tolvaptan x2 doses. No other complaints today. OBJECTIVE: VITAL SIGNS: Blood pressure is 180/78, heart rate 82, respiratory rate 20, temperature 97.6, O2 saturation 98%. GENERAL: Awake, alert, comfortable, not in overt distress. SKIN: Adequate turgor. HEENT: Pinkish conjunctivae, anicteric sclerae. NECK: No neck mass. No carotid bruits. No JVD. CHEST: No deformities. LUNGS: Clear breath sounds. No wheezing. HEART: Normal sinus rhythm. No murmurs, gallops, or rubs. ABDOMEN: Globular, soft, nontender. No masses. EXTREMITIES: No edema, no deformities. MEDICATIONS: Medications of April 07, 2020, was reviewed. LABORATORY DATA: April 07, 2020: White count 10.9, hemoglobin 12.5. Sodium 136, potassium 3.7, chloride 89, carbon dioxide 30, BUN is 8, creatinine 0.64, glucose is 111, calcium is 8.5. ASSESSMENT AND PLAN: 1. Hyponatremia-serum sodium is much improved and is now within normal. It is possible she may simply have a transient SIADH. Continue for the moment free water restriction. If the serum sodium will remain within normal for the next several weeks, I am more inclined to say that SIADH may have been transient. 2. Metabolic alkalosis. The patient's bicarbonate is improved from 38 to 33. We did start her on normal saline at 75 mL/h thinking that this is more likely a contraction alkalosis/volume depletion. Continue current management. 3. Overall agree with current management, recheck base met in a.m. Job ID: [id number]
[2020-04-07] MEDS: Alogliptin 6.25 MG TAB PO SCH ×2 (08:48→20:26)
[2020-04-07] MEDS: Calcium Carbonate 600 MG TAB PO SCH ×2 (08:48→20:27)
[2020-04-07] MEDS: metFORMIN 500 MG TAB PO SCH ×2 (08:49→20:27)
[2020-04-07] MEDS: Cholecalciferol 1,000 UNITS (25 MCG) TAB PO SCH (08:49)
[2020-04-07] MEDS: Lisinopril 20 MG TAB PO SCH (08:49)
[2020-04-07] MEDS: Amlodipine 5 MG TAB PO SCH ×2 (09:08→20:26)
[2020-04-07] MEDS: Dicyclomine 20 MG TAB PO PRN ×2 (13:15→20:28)
[2020-04-07] MEDS: Warfarin Sodium 2 MG TAB PO SCH (17:13)
--- NOTE | 2020-04-07 17:48 | PQF ---
Q26 2018 [facility] Updated: CLINICAL DOCUMENTATION CLARIFICATION FORM: Patient Name: TROY STEWARD Date of : 1935 Account: [id number] Admit Date: 03/31/2020 Facility: [facility] Dear Dr. BORREGO Date 04/07/20 Please exercise your independent, professional judgment in responding to the clarification form. Clinical indicators are provided on the bottom of this form for your review. Please check appropriate box(es): HEART FAILURE: A. ACUITY [ ] Acute [X ] Acute on Chronic [ ] Chronic B. TYPE: [ ] Systolic / HFrEF [ X] Diastolic / HFpEF [ ] Combined Systolic / Diastolic [ ] Hypertensive Heart Disease [ ] Other diagnosis [ ] Unable to determine In addition, please specify: Present on Admission (POA): [ X ] Yes [ ] No [ ] Unable to determine For continuity of documentation, please document condition throughout progress notes and discharge summary. Thank You. 04/06: "PULMONARY EDEMA- SUSPECTED SECONDARY TO CHF WITH BNP 1006." ECHO 04/02: "EF 55-60%, DILATED LEFT LEFT ATRIUM, MOD ENLARGED RA SIZE.MOD ENLARGED RV CAVITY, MILD MR, MOD TR, INCREASED RIGHT VENTRICULAR SYSTOLIC ." CONSULTATION NOTE 04/02 (URSZULA): CONGESTIVE HEART FAILURE, PROBABLY SECONDARY TO DIASTOLIC HEART FAILURE." RISKS: CARDIOMEGALY (PN 04/06 PILO) HTN (PN 04/06 PILO) AFIB (PN 04/06) TREATMENT: ECHO 04/02 FLUID RESTRICTION CARDIOLOGY CONSULT TELEMETRY MONITORING LISINOPRIL 04/06-PRESENT) 40 MG IV LASIX GIVEN AT OUTSIDE HOSPITAL, 20 MG OF IV LASIX-CONTINUE TO MONITOR FLUID STATUS (H&P -LISA) [employer] Signature: Padmini Maharaj RN Phone #: [phone] Date: 04/07/20 This is a permanent part of the Medical Record [facility]
[2020-04-07] MEDS: Atorvastatin Calcium 10 MG TAB PO SCH (20:27)
[2020-04-07] MEDS: Latanoprost 0.005% Ophth Soln 2.5 ml Bottle EA EYE SCH (20:29)
[2020-04-07] MEDS: Timolol 0.5% Ophth Soln 5 ml Bottle EA EYE SCH (20:30)
[2020-04-08 04:16] LABS: #Eosinphils 0.1 thou/uL (0.0-0.7); #Lymphocytes 1.6 thou/uL (1.20-3.40); #Monocytes 0.8 thou/uL (0.11-0.59); #Neutrophils 9.8 thou/uL (1.40-6.50); %Eosinophils 0.7 % (0.0-10.0); %Lymphocytes 13.2 % (21.0-51.0); %Monocytes 6.1 % (0.0-10.0); Hemoglobin 12.1 g/dL (12.0-16.0); Mean Corpuscular HGB CONC 33.4 g/dL (32.0-36.0); Mean Corpuscular Hemoglobin 33.1 pg (27.0-31.0); Mean Platelet Volume 6.6 fL (7.4-10.4); Platelet Count 148 thou/uL (130-400); RBC Distribution Width 11.7 % (11.5-14.5); Red Blood Cell (RBC) Count 3.64 mill/uL (4.20-5.40); White Blood Cell (WBC) Count 12.3 thou/uL (4.8-10.8)
[2020-04-08 04:20] LABS: INR-International Normal Ratio 2.8; Prothrombin Time 29.6 sec (12.0-14.7)
[2020-04-08 04:35] LABS: Anion Gap 13 mmol/L (10-20); BUN (Urea Nitrogen) 10 mg/dL (9.8-20.1); Calc. Creatinine Clearance 102 mL/min (70-130); Calcium 7.9 mg/dL (7.8-10.44); Carbon Dioxide 33 mmol/L (23-31); Chloride 91 mmol/L (98-107); Estimated GFR-MDRD Greater than 90; Glucose 135 mg/dL (83-110); Potassium 3.4 mmol/L (3.5-5.1); Sodium 134 mmol/L (136-145)
[2020-04-08] MEDS: Sodium Chloride 0.9% 1,000 ML IV SCH (04:37)
--- NOTE | 2020-04-08 05:39 | PDOC.FM ---
- Subjective Subjective: Pt resting comfortably at bedside. States that she is having difficulty breathing still. She is on 1.5L NC satting at 98%. She states that she has no N/ V, urinary symptoms. She had a couple loose bowel movements yesterday that improved with her IBS medications. She states that she still has good appetite and continues to eat her meals. - Objective Vital Signs & Weight: Vital Signs (12 hours) Temp Pulse Resp BP Pulse Ox 04/08/20 04:00 97.6 F 80 20 167/74 H 98 04/08/20 00:05 97.7 F 85 18 174/74 H 96 04/08/20 00:00 96 04/07/20 23:16 83 20 98 04/07/20 20:30 74 04/07/20 20:26 76 04/07/20 20:00 97.7 F 76 18 165/74 H 95 Weight Admit Weight 91.762 kg Weight 98.656 kg I&O: 04/06/20 04/07/20 04/08/20 06:59 06:59 06:59 Intake Total 980 2000 1320 Output Total 1900 2050 350 Balance -920 -50 970 Result Diagrams: 04/08/20 03:52 04/08/20 03:52 Phys Exam - Physical Examination Constitutional: NAD HEENT: PERRLA, moist MMs, oral pharynx no lesions Respiratory: no wheezing, no rales, no rhonchi, clear to auscultation bilateral Cardiovascular: RRR, no significant murmur Gastrointestinal: soft, non-tender, no distention, positive bowel sounds Musculoskeletal: no edema, pulses present Dx/Plan - Plan Plan: 85 y/o F with PMH of Afib, DMII, HTN, and IBS who is admitted to telemetry due to pulmonary edema and hyponatremia. ##Hyponatremia -Na 110s --> 130-->128-->133-->136-->134 -Nephrology recs: Suspicious for SIADH (transient) at this time. Tolvaptan discontinued. Continue free water restriction. Metabolic alkalosis (contraction ) improved, Bicarb 33. Ok to start on 75ml/hr NS. BMP recheck -CT chest: Revealed a thyroid mass. ENT consulted: believe goiter is most likely due to size, says 1 study shows link between papillary cancer and SIADH. Will perform US guided biopsy outpatient. -TSH, Phos normal -Hold home medication of Dyazide ##Pulmonary Edema -suspected secondary to CHF with BNP of 1006 -ECHO on 04/02: EF 55-60%, dilated LA, mod enlarged RA size, mod enlarged RV cavity, mild MR, mod TR, increased right ventricular systolic pressure -xray at outside hospital showed cardiomegaly and signs of pulmonary edema -NM stress test: no perfusion defects seen -continue to monitor fluid status -on NC, will wean off today ##HTN -160s-70/70-80 -Restarted patient's home lisinopril -ditiazem @ 120mg ##Atrial Fibrillation -rate controlled in 70s -continue home ditiazem -on warfarin -INR 2.0 ##Hypocalcemia -Ca = 8.5-->7.9 -responding well to supplementation. -calcium carbonate 1200mg BID ##Vit D deficiency -25.2 -replace with 1000units/day ##DMII -mod SSI -continue home Janumet ##IBS -continue home dicyclomine Diet: HH/CC IVF: none PPx: SCDs, pt is also on warfarin for Afib Code: DNR/DNI PCP: [facility] Dispo: continue to wean off of O2. control BP. f/u with CM for INPT rehab. Addendum - Attending - Attending Attestation Date/Time: 04/08/20 3003 I personally evaluated the patient and discussed the management with Dr. Deng. I agree with the History, Examination, Assessment and Plan documented above with any addition or exceptions noted below. Patient overall doing well. Continues to complain of shortness of breath sensation but she appears to be breathing very comfortably. O2 sats normal. I believe some of her complaint is related to anxiety, will try one dose of very low Xanax and see how she responds. INR therapeutic. Awaiting placement. Increasing Diltiazem to home dose today.
--- NOTE | 2020-04-08 08:23 | RAD ---
RADIOGRAPH CHEST 1 VIEW: DATE: 04/08/2020 TIME: 8:06 AM HISTORY: 85-year-old female with dyspnea COMPARISON: 03/31/2020 FINDINGS: Worsening of aeration of bilateral lung bases. No other interval change. IMPRESSION: 1) worsening of aeration of bilateral lung bases. This could be due to worsening atelectasis versus p neumonia (especially in the left lower lobe) versus increase in pleural effusions, or combination. 2) left substernal large thyroid mass
--- NOTE | 2020-04-08 08:52 | PRG ---
DATE OF SERVICE: 04/08/2020 SERVICE: Renal Medicine. SUBJECTIVE: Ms. Castano is an 85-year-old white female, who was initially seen by the Renal Service for the hyponatremia. We felt this was SIADH. Subsequently, serum sodium improved. However, serum sodium is slightly lower today. The patient does admit being more liberal with her free water intake. In addition, she was complaining of some shortness of breath. She was also short of breath yesterday. A chest x-ray will be ordered. A possibility of COPD exacerbation remains with this patient. Please note that the last cardiac echo showed a normal ejection fraction. DuoNeb will be initiated. Chest x-ray has been ordered. OBJECTIVE: VITAL SIGNS: Blood pressure 160/86, heart rate 83, respiratory rate is 16, temperature 97.5, and O2 saturation 97%. GENERAL: The patient is awake, supine, and comfortable, not in overt distress. SKIN: Adequate turgor. HEENT: She has pinkish conjunctivae. Anicteric sclerae. NECK: No neck mass. No carotid bruits. No JVD. CHEST: No deformities. LUNGS: Decreased breath sounds. HEART: Normal sinus rhythm. No murmur. No gallops. No rubs. ABDOMEN: Globular, soft, nontender. No masses. EXTREMITIES: No edema. No deformities. MEDICATIONS: Medications of April 08, 2020, were reviewed. LABORATORY DATA: Laboratories of April 08, 2020; white count 12.3, hemoglobin 12.1. Sodium 134, potassium 3.4, chloride 91, carbon dioxide 33, BUN 10, creatinine 0.62, glucose 135, and calcium 7.9. ASSESSMENT AND PLAN: 1. 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 Much improved serum sodium. The serum sodium is slightly lower today at 134 and yesterday, this was normal. This may be reflection of her increased free water intake, which the patient admitted. We will continue to observe. 2. Metabolic alkalosis-initially felt this was from contraction alkalosis. However due to the shortness of breath, we will agree to discontinue normal saline. Chest x-ray will be done. 3. Shortness of breath-albuterol changed to DuoNeb q.6 hours. In addition, chest x-ray will be done. For the moment, continue supportive care. Job ID: [id number]
[2020-04-08] MEDS: Calcium Carbonate 600 MG TAB PO SCH ×2 (10:10→20:48)
[2020-04-08] MEDS: Amlodipine 5 MG TAB PO SCH ×2 (10:10→20:48)
[2020-04-08] MEDS: Alogliptin 6.25 MG TAB PO SCH ×2 (10:10→20:48)
[2020-04-08] MEDS: metFORMIN 500 MG TAB PO SCH ×2 (10:11→20:48)
[2020-04-08] MEDS: Lisinopril 20 MG TAB PO SCH (10:11)
[2020-04-08] MEDS: Cholecalciferol 1,000 UNITS (25 MCG) TAB PO SCH (10:11)
[2020-04-08] MEDS: Timolol 0.5% Ophth Soln 5 ml Bottle EA EYE SCH ×2 (10:12→20:47)
[2020-04-08] MEDS ORDERED: ALPRAZolam 0.25 MG TAB PO SCH (11:30)
[2020-04-08] MEDS ORDERED: Furosemide 40 MG/4 ML VIAL SLOW IVP SCH (12:45)
[2020-04-08] MEDS: hydrALAZINE 25 MG TAB PO SCH ×2 (15:15→20:48)
[2020-04-08] MEDS: Warfarin Sodium 2 MG TAB PO SCH (17:44)
[2020-04-08] MEDS: Latanoprost 0.005% Ophth Soln 2.5 ml Bottle EA EYE SCH (20:47)
[2020-04-08] MEDS: Atorvastatin Calcium 10 MG TAB PO SCH (20:48)
[2020-04-09 04:42] LABS: #Eosinphils 0.1 thou/uL (0.0-0.7); #Lymphocytes 1.5 thou/uL (1.20-3.40); #Monocytes 0.9 thou/uL (0.11-0.59); %Basophils 0.3 % (0.0-1.0); %Eosinophils 1.1 % (0.0-10.0); %Lymphocytes 12.1 % (21.0-51.0); %Neutrophils 79.5 % (42.0-75.0); Hemoglobin 12.4 g/dL (12.0-16.0); Mean Corpuscular HGB CONC 32.5 g/dL (32.0-36.0); Mean Corpuscular Hemoglobin 32.2 pg (27.0-31.0); Mean Corpuscular Volume 98.9 fL (78.0-98.0); Mean Platelet Volume 6.9 fL (7.4-10.4); Platelet Count 164 thou/uL (130-400); RBC Distribution Width 11.9 % (11.5-14.5); Red Blood Cell (RBC) Count 3.86 mill/uL (4.20-5.40); White Blood Cell (WBC) Count 12.6 thou/uL (4.8-10.8)
[2020-04-09 04:56] LABS: Prothrombin Time 38.4 sec (12.0-14.7)
[2020-04-09 05:03] LABS: Anion Gap 15 mmol/L (10-20); BUN (Urea Nitrogen) 12 mg/dL (9.8-20.1); Calc. Creatinine Clearance 107 mL/min (70-130); Calcium 8.1 mg/dL (7.8-10.44); Carbon Dioxide 34 mmol/L (23-31); Chloride 90 mmol/L (98-107); Estimated GFR-MDRD Greater than 90; Glucose 142 mg/dL (83-110); Potassium 3.1 mmol/L (3.5-5.1); Sodium 136 mmol/L (136-145)
--- NOTE | 2020-04-09 05:12 | PDOC.FM ---
- Subjective Subjective: Pt resting comfortably at bedside. No acute events overnight. Reports that her breathing has improved, she is currently on 1.5 L NC satting at 98. She does state that she had diarrhea yesterday. States that there are certain foods she cannot eat and they might be causing her diarrhea. - Objective Vital Signs & Weight: Vital Signs (12 hours) Temp Pulse Resp BP BP Pulse Ox 04/09/20 00:11 79 20 98 04/08/20 20:48 77 146/65 H 04/08/20 20:47 77 146/65 H 04/08/20 19:25 97.9 F 77 22 H 146/65 H 98 04/08/20 18:26 78 20 97 Weight Admit Weight 91.762 kg Weight 98.656 kg I&O: 04/07/20 04/08/20 04/09/20 06:59 06:59 06:59 Intake Total 1999 2412 150 Output Total 2049 350 Balance -50 2062 150 Result Diagrams: 04/09/20 04:28 04/09/20 04:28 Phys Exam - Physical Examination Constitutional: NAD HEENT: PERRLA, moist MMs Respiratory: no wheezing, no rales, no rhonchi, clear to auscultation bilateral Cardiovascular: RRR, no significant murmur Gastrointestinal: soft, non-tender, no distention Musculoskeletal: edema present (pedal edema) Psychiatric: normal affect Skin: no rash Dx/Plan - Plan Plan: 85 y/o F with PMH of Afib, DMII, HTN, and IBS who is admitted to telemetry due to pulmonary edema and hyponatremia. ##Hyponatremia -Na 110s --> 130-->128-->133-->136-->134-->136 -Nephrology recs: Suspicious for SIADH (transient) at this time. Tolvaptan discontinued. Continue free water restriction. Metabolic alkalosis (contraction ) improved, Bicarb 33. Ok to start on 75ml/hr NS. BMP recheck -CT chest: Revealed a thyroid mass. ENT consulted: believe goiter is most likely due to size, says 1 study shows link between papillary cancer and SIADH. Will perform US guided biopsy outpatient. -TSH, Phos normal -Hold home medication of Dyazide ##Pulmonary Edema -suspected secondary to CHF with BNP of 1006 -ECHO on 04/02: EF 55-60%, dilated LA, mod enlarged RA size, mod enlarged RV cavity, mild MR, mod TR, increased right ventricular systolic pressure -xray at outside hospital showed cardiomegaly and signs of pulmonary edema -NM stress test: no perfusion defects seen -continue to monitor fluid status -on NC, will wean off today ##HTN -BPs in 130-40s/60-70s -Restarted patient's home lisinopril -ditiazem @ 240mg, amlodipine ##Atrial Fibrillation -rate controlled in 70s -continue home ditiazem -on warfarin -INR 2.0--4.0 ## Hypokalemia - K = 3.1 -replete -check Mg ##Hypocalcemia -Ca = 8.5-->7.9 -responding well to supplementation. -calcium carbonate 1200mg BID ##Vit D deficiency -25.2 -replace with 1000units/day ##DMII -mod SSI -continue home Janumet ##IBS -continue home dicyclomine Diet: HH/CC IVF: none PPx: SCDs, pt is also on warfarin for Afib Code: DNR/DNI PCP: [facility] Dispo: BP under better control. will hold warfarin dose today. replete K+. check Mg. see about weaning O2. f/u with [facility] for INPT rehab.
[2020-04-09] MEDS ORDERED: Potassium Chloride 20 MEQ TAB PO SCH (08:15)
[2020-04-09] MEDS: Timolol 0.5% Ophth Soln 5 ml Bottle EA EYE SCH ×2 (08:46→21:02)
[2020-04-09] MEDS: Calcium Carbonate 600 MG TAB PO SCH ×2 (08:47→20:59)
[2020-04-09] MEDS: Alogliptin 6.25 MG TAB PO SCH ×2 (08:48→20:56)
[2020-04-09] MEDS: metFORMIN 500 MG TAB PO SCH ×2 (08:49→21:01)
[2020-04-09] MEDS: Lisinopril 20 MG TAB PO SCH (08:49)
[2020-04-09] MEDS: hydrALAZINE 25 MG TAB PO SCH ×3 (08:50→21:01)
[2020-04-09] MEDS: Amlodipine 5 MG TAB PO SCH ×2 (08:50→20:57)
[2020-04-09] MEDS: Cholecalciferol 1,000 UNITS (25 MCG) TAB PO SCH (08:50)
[2020-04-09] MEDS ORDERED: Potassium Chloride 40 MEQ in Premix Bag 1 BAG IVPB SCH (09:00)
[2020-04-09] MEDS: Potassium Chloride 20 MEQ in Premix Bag 1 BAG IVPB SCH ×2 (10:20→12:38)
[2020-04-09 10:58] VITALS: BMI 39.0
[2020-04-09] MEDS ORDERED: Magnesium 2 GM/50 ML 2 GM in Premix Bag 1 BAG IVPB SCH (16:30)
[2020-04-09] MEDS: Atorvastatin Calcium 10 MG TAB PO SCH (20:58)
[2020-04-09] MEDS: Latanoprost 0.005% Ophth Soln 2.5 ml Bottle EA EYE SCH (21:02)
[2020-04-10 04:16] LABS: #Eosinphils 0.1 thou/uL (0.0-0.7); #Neutrophils 11.2 thou/uL (1.40-6.50); %Basophils 0.1 % (0.0-1.0); %Eosinophils 0.9 % (0.0-10.0); %Lymphocytes 13.6 % (21.0-51.0); %Monocytes 7.1 % (0.0-10.0); %Neutrophils 78.3 % (42.0-75.0); Hemoglobin 12.2 g/dL (12.0-16.0); Mean Corpuscular HGB CONC 33.6 g/dL (32.0-36.0); Mean Corpuscular Hemoglobin 33.4 pg (27.0-31.0); Mean Corpuscular Volume 99.5 fL (78.0-98.0); Mean Platelet Volume 6.9 fL (7.4-10.4); Platelet Count 189 thou/uL (130-400); RBC Distribution Width 12.1 % (11.5-14.5); Red Blood Cell (RBC) Count 3.67 mill/uL (4.20-5.40); White Blood Cell (WBC) Count 14.3 thou/uL (4.8-10.8)
[2020-04-10 04:22] LABS: Prothrombin Time 44.5 sec (12.0-14.7)
[2020-04-10 04:25] LABS: INR-International Normal Ratio 4.8
[2020-04-10 04:44] LABS: Anion Gap 14 mmol/L (10-20); BUN (Urea Nitrogen) 22 mg/dL (9.8-20.1); Calc. Creatinine Clearance 73 mL/min (70-130); Calcium 8.1 mg/dL (7.8-10.44); Carbon Dioxide 32 mmol/L (23-31); Chloride 92 mmol/L (98-107); Estimated GFR-MDRD 61; Glucose 139 mg/dL (83-110); Potassium 4.1 mmol/L (3.5-5.1); Sodium 134 mmol/L (136-145)
--- NOTE | 2020-04-10 05:19 | PDOC.FM ---
- Subjective Subjective: Pt resting comfortably at bedside today. States that her breathing has improved. Satting well on 2L NC. No fever/chills/night sweats. - Objective Vital Signs & Weight: Vital Signs (12 hours) Temp Pulse Resp BP BP Pulse Ox 04/10/20 03:28 97.8 F 67 20 99/55 L 95 04/10/20 00:07 16 04/09/20 21:02 68 110/53 L 04/09/20 21:01 68 110/53 L 04/09/20 20:57 67 110/53 L 04/09/20 20:00 73 20 110/53 L 97 04/09/20 18:18 75 16 96 Weight Admit Weight 91.762 kg Weight 96.933 kg I&O: 04/08/20 04/09/20 04/10/20 06:59 06:59 06:59 Intake Total 2413 270 360 Output Total 350 Balance 2063 270 360 Result Diagrams: 04/10/20 03:55 04/10/20 03:55 Phys Exam - Physical Examination Constitutional: NAD HEENT: PERRLA Respiratory: no wheezing, no rales, no rhonchi Cardiovascular: RRR, no significant murmur, no rub Gastrointestinal: soft, non-tender, no distention, positive bowel sounds Musculoskeletal: pulses present Psychiatric: normal affect, A&O x 3 Dx/Plan - Plan Plan: 85 y/o F with PMH of Afib, DMII, HTN, and IBS who is admitted to telemetry due to pulmonary edema and hyponatremia. ##Hyponatremia -Na 110s --> 130-->128-->133-->136-->134-->136--134 -Nephrology recs: Suspicious for SIADH (transient) at this time. Tolvaptan discontinued. Continue free water restriction. Metabolic alkalosis (contraction ) improved, Bicarb 33. Ok to start on 75ml/hr NS. BMP recheck -CT chest: Revealed a thyroid mass. ENT consulted: believe goiter is most likely due to size, says 1 study shows link between papillary cancer and SIADH. Will perform US guided biopsy outpatient. -TSH, Phos normal -Hold home medication of Dyazide ##Pulmonary Edema -suspected secondary to CHF with BNP of 1006 -ECHO on 04/02: EF 55-60%, dilated LA, mod enlarged RA size, mod enlarged RV cavity, mild MR, mod TR, increased right ventricular systolic pressure -xray at outside hospital showed cardiomegaly and signs of pulmonary edema -NM stress test: no perfusion defects seen -continue to monitor fluid status -on NC, will wean off today ##HTN -BPs in 130-40s/60-70s -Restarted patient's home lisinopril -ditiazem @ 240mg, amlodipine ##Atrial Fibrillation -rate controlled in 70s -continue home ditiazem -currently holding warfarin and monitoring daily INR -INR 2.0--4.0--4.8 ## Hypokalemia - K = 3.1 , repleted now 4.1 ##Hypocalcemia -Ca = 8.5-->7.9 -responding well to supplementation. -calcium carbonate 1200mg BID ##Vit D deficiency -25.2 -replace with 1000units/day ##DMII -mod SSI -continue home Janumet ##IBS -continue home dicyclomine Diet: HH/CC IVF: none PPx: SCDs, pt is also on warfarin for Afib Code: DNR/DNI PCP: [facility] dispo: pt accepted to inpatient rehab yesterday and will have a bed for her tuesday. will hold warfarin right now and continue to monitor INR. wean off of O2. Addendum - Attending - Attending Attestation Date/Time: 04/10/20 1550 I personally evaluated the patient and discussed the management with Dr. Deng. I agree with the History, Examination, Assessment and Plan documented above with any addition or exceptions noted below. Patient overall stable. No respiratory complaints. Sodium stable. Awaiting transfer to Rehab hopefully tomorrow. Holding coumadin for INR.
[2020-04-10] MEDS: Cholecalciferol 1,000 UNITS (25 MCG) TAB PO SCH (08:56)
[2020-04-10] MEDS: Amlodipine 5 MG TAB PO SCH ×2 (08:56→20:08)
[2020-04-10] MEDS: Calcium Carbonate 600 MG TAB PO SCH ×2 (08:56→20:08)
[2020-04-10] MEDS: metFORMIN 500 MG TAB PO SCH ×2 (08:56→20:08)
[2020-04-10] MEDS: Alogliptin 6.25 MG TAB PO SCH ×2 (08:56→20:14)
[2020-04-10] MEDS: Timolol 0.5% Ophth Soln 5 ml Bottle EA EYE SCH ×2 (08:56→20:09)
[2020-04-10] MEDS: hydrALAZINE 25 MG TAB PO SCH ×3 (08:56→20:08)
[2020-04-10] MEDS: Dicyclomine 20 MG TAB PO PRN ×2 (15:21→20:15)
[2020-04-10] MEDS ORDERED: Albuterol 200 PUFF (6.7GM INHALER) INH PRN (19:16)
[2020-04-10] MEDS ORDERED: HYDROCHLOROTHIAZID PO PRN (19:16)
[2020-04-10] MEDS ORDERED: Dicyclomine 20 MG TAB PO PRN (19:16)
[2020-04-10] MEDS ORDERED: TRIAMTERENE PO PRN (19:16)
[2020-04-10 20:04] VITALS: BP 113/57; TEMP 98
[2020-04-10] MEDS: Atorvastatin Calcium 10 MG TAB PO SCH (20:08)
[2020-04-10] MEDS: Latanoprost 0.005% Ophth Soln 2.5 ml Bottle EA EYE SCH (20:09)
[2020-04-10] MEDS ORDERED: Latanoprost 0.005% Ophth Soln 2.5 ml Bottle EA EYE SCH (21:00)
[2020-04-11] MEDS ORDERED: Fluticasone Propionate Nasal Spray 16 gm Bottle NASAL SCH (09:00)
[2020-04-11] MEDS ORDERED: Atorvastatin Calcium 10 MG TAB PO SCH (09:00)
[2020-04-11] MEDS ORDERED: TIMOLOL MALEATE EA EYE SCH (09:00)
== END 2020-04-10 21:30 | DRG 643 ==
LOC: ERS 18:13 → ERHOLD 18:59 → 2NO 04-01 13:12
PROVIDERS: ADMIT Family Medicine; ATTEND Family Medicine
DX: E22.2 Syndrome of inappropriate secretion of antidiuretic hormone (principal); I50.33 Acute on chronic diastolic (congestive) heart failure; I48.21 Permanent atrial fibrillation; Z66 Do not resuscitate; I11.0 Hypertensive heart disease with heart failure; E11.9 Type 2 diabetes mellitus without complications; E78.5 Hyperlipidemia, unspecified; E78.00 Pure hypercholesterolemia, unspecified; E66.9 Obesity, unspecified; K58.9 Irritable bowel syndrome, unspecified; E55.9 Vitamin D deficiency, unspecified; D72.829 Elevated white blood cell count, unspecified; I95.9 Hypotension, unspecified; E83.42 Hypomagnesemia; Z90.49 Acquired absence of other specified parts of digestive tract; Z90.710 Acquired absence of both cervix and uterus; Z88.5 Allergy status to narcotic agent; Z79.4 Long term (current) use of insulin; Z79.899 Other long term (current) drug therapy; Z79.01 Long term (current) use of anticoagulants; Z68.39 Body mass index [BMI] 39.0-39.9, adult; Z79.51 Long term (current) use of inhaled steroids
CPT/HCPCS: 36415; 36416; 71045; 71260; 78452; 80048; 80076; 82040; 82306; 82533; 83735; 83930; 83935; 84100; 84145; 84300; 84443; 84540; 84550; 85025; 85520; 85610; 93005; 93010; 93017; 93306; 94640; 97139; 99285; A9500; J0153; J1250; J1650; J1815; J1940; J3475; J3480; J7131; J7611; J7620; Q0162; Q9967